=== PATIENT | female | born 1955 | race Caucasian/White ===

== ENCOUNTER 2025-03-18 15:15 | Outpatient (OUT) | payer MEDICARE, OTHER, SELFPAY ==
--- OUTSIDE RECORDS SUMMARY | 2025-03-18 15:29 | XMS_ITS | Encounter Summary ---
Author Organization [facility] Address [address] [place] [address] Care Team Providers Care Assistant Production Manager Name Role Phone Kady Cotter MD Primary Care Provider [phone] Encounter Details Date Type Department Care Team (Late st Contact Info) Description 01/21/2025 Results Follow-Up [facility] Part of [address] [place] [address] Verónica Miramontes APRN - FINESSE[address] [place], [place] [id number] Social History Tobacco Use Types Packs/Day Years Used Date Smoking Tobacco: Never Smokeless Tobacco: Never Alcohol Use Standard Drinks/Week Comments No 0 (1 standard drink = 0.6 oz pur e alcohol) Overall Financial Resource Strain (CARDIA) Answe r Date Recorded How hard is it for you to pa y for the very basics like food, housing, medical care, and heating? Not hard at all 08/09/2023 PHQ-2 Answer Date Recorded PHQ-2 Score 0 12/11/2018 Hunger Vital Sign Answer Date Recorded Within the past 12 months, y ou worried that your food would run out before you got the money to buy more. Never true 08/09/20 23 Within the past 12 months, t he food you bought just didn't last and you didn't have money to get more. Never true 08/09/2023 PRAPARE - Transportation Answer Date Re corded Lack of Transportation (Medical) Not on file 08/09/2023 In the past 12 months, has l ack of transportation kept you from meetings, work, or from getting things needed for daily living? No 08/09/2023 Housing Stability Vital Sign Answer Didier e Recorded Unable to Pay for Housing in the Last Year Not o n file 08/09/2023 Number of Places Lived in the Last Year Not on f ile 08/09/2023 In the last 12 months, was t here a time when you did not have a steady place to sleep or slept in a long term (including now)? No 08/09/2023 Food Insecurity Answer Date Recorded Within the past 12 months, y ou worried that your food would run out before you got the money to buy more. 1 08/09/2023 Within the past 12 months, t he food you bought just didn't last and you didn't have money to get more. 1 08/09/2023 Comments No Sex and Gender Information Value Date Recorded Sex Assigned at Not on file Legal Sex Female 10:06 AM EST Gender Identity Not on file Sexual Orientation Not on file documented as of this encounter Plan of Treatment Not on file documented as of this encounter Visit Diagnoses Not on filedocumented in this encounter Care Teams Assistant Production Manager Relationship Specialty Start Date End Date Kady Cotter MD [address] [place] [phone] PCP - General 08/13/12 documented as of this encounter
--- OUTSIDE RECORDS SUMMARY | 2025-03-18 15:29 | XMS_ITS | Encounter Summary ---
Author Organization [facility] Address [address] [place] [address] Care Team Providers Care Senior Label Specialist Name Role Phone Kady Cotter MD Primary Care Provider [phone] Source Comments In the event this information is protected by the Federal Confidentiality of Alcohol and Drug AbusePatient Records regulations: The Federal rules restrict any use of the information to criminally investigate or prosecute any alcohol or drug abuse patient.[facility] Encounter Details Date Type Department Care Team (Late st Contact Info) Description 02/06/2020 [place] [address] Provider, [facility] Estimate Social History Tobacco Use Types Packs/Day Years Used Date Smoking Tobacco: Never Smokeless Tobacco: Never Alcohol Use Standard Drinks/Week Comments Yes 0 (1 standard drink = 0.6 oz pur e alcohol) occasional Comments No Sex and Gender Information Value Date Recorded Sex Assigned at Not on file Legal Sex Female 10:14 AM EST Gender Identity Not on file Sexual Orientation Not on file COVID-19 Exposure Response Date Recorded In the last month, have you been in contact with someone who was confirmed or suspected to have Coronavirus / COVID-19? Unable to assess 01/30/2020 9:46 AM EDT documented as of this encounter Functional Status * Are you deaf or do you have serious difficulty hearing? Answer Date of Assessment Author No 03/08/2015 3:41 PM ROMÁNT Ritika Abdul MA * Are you blind or do you have serious difficulty seeing, even when wearing glasses? Answer Date of Assessment Author No 03/08/2015 3:41 PM EDT Ritika Abdul MA * Do you have serious difficulty walking or climbing stairs? Answer Date of Assessment Author No 03/08/2015 3:41 PM EDT Ritika Abdul MA * Do you have difficulty dressing or bathing? Answer Date of Assessment Author No 03/08/2015 3:41 PM EDT Ritika Abdul MA * Because of a physical, mental, or emotional condition, do you have difficulty doing errands alone such as visiting a doctor's office or shopping? Answer Date of Assessment Author No 03/08/2015 3:41 PM ROMÁNT Ritika Abdul MA documented as of this encounter Mental Status * Because of a physical, mental, or emotional condition, do you have serious difficulty concentrating, remembering, or making decisions? Answer Entry Date Author No 03/08/2015 3:41 PM Ritika Angel MA documented in this encounter Plan of Treatment Not on file documented as of this encounter Visit Diagnoses Not on filedocumented in this encounter Care Teams Senior Label Specialist Relationship Specialty Start Date End Date Kady Cotter MD [address] [place] [phone] PCP - General Family Medicine 10/19/11 documented as of this encounter
--- OUTSIDE RECORDS SUMMARY | 2025-03-18 15:29 | XMS_ITS | Encounter Summary ---
Author Organization [facility] Address [address] [place] [address] Care Team Providers Care Pantograph Ii Engraver Name Role Phone Kady Cotter MD Primary Care Provider [phone] Source Comments In the event this information is protected by the Federal Confidentiality of Alcohol and Drug AbusePatient Records regulations: The Federal rules restrict any use of the information to criminally investigate or prosecute any alcohol or drug abuse patient.[facility] Encounter Details Date Type Department Care Team (Late st Contact Info) Description 03/06/2025 Patient Msg Urology [address] [id number] Provider, [facility] Fpc Letter Social History Tobacco Use Types Packs/Day Years Used Date Smoking Tobacco: Never Smokeless Tobacco: Never Alcohol Use Standard Drinks/Week Comments Yes 0 (1 standard drink = 0.6 oz pur e alcohol) occasional PHQ-2 Answer Date Recorded PHQ-2 score 0 01/12/2025 Area Deprivation Index Answer Date Douglas rded National Score (1-100), lower number is lower ri sk 65 03/20/2023 State Score (1-10), lower number is lower risk 5 03/20/2023 Data from: https://www.[facility]/. Last address used for calculation [address] 03/20/2023 Comments No Sex and Gender Information Value Date Recorded Sex Assigned at Not on file Legal Sex Female 10:14 AM EST Gender Identity Not on file Sexual Orientation Not on file documented as of this encounter Functional Status * Are you deaf or do you have serious difficulty hearing? Answer Date of Assessment Author No 03/08/2015 3:41 PM Ritika Angel MA * Are you blind or do you have serious difficulty seeing, even when wearing glasses? Answer Date of Assessment Author No 03/08/2015 3:41 PM Ritika Angel MA * Do you have serious difficulty walking or climbing stairs? Answer Date of Assessment Author No 03/08/2015 3:41 PM Ritika Angel MA * Do you have difficulty dressing or bathing? Answer Date of Assessment Author No 03/08/2015 3:41 PM Ritika Angel MA * Because of a physical, mental, or emotional condition, do you have difficulty doing errands alone such as visiting a doctor's office or shopping? Answer Date of Assessment Author No 03/08/2015 3:41 PM Ritika Angel MA documented as of this encounter Mental Status * Because of a physical, mental, or emotional condition, do you have serious difficulty concentrating, remembering, or making decisions? Answer Entry Date Author No 03/08/2015 3:41 PM Ritika Angel MA documented in this encounter Plan of Treatment Not on file documented as of this encounter Visit Diagnoses Not on filedocumented in this encounter Care Teams Pantograph Ii Engraver Relationship Specialty Start Date End Date Kady Cotter MD [address] [place] [phone] PCP - General Family Medicine 10/19/11 documented as of this encounter
--- OUTSIDE RECORDS SUMMARY | 2025-03-18 15:29 | XMS_ITS | Clinical Summary ---
Author Organization [facility] Address [address] [place] [address] Care Team Providers Care Tobacco Grower Name Role Phone Kady Cotter MD Primary Care Provider [phone] Allergies Active Allergy Reactions Criticality Noted Date Comments Nsaids (Non-Steroidal Anti-Inflammatory Drug) Other: See Comments,Unknown 11/05/2013 Rosuvastatin Other: See Comments 11/07/2024 Medications metoprolol succinate XL, long acting, 25 mg ORAL 24 hr tablet Take 25 mg by mouth once daily. Active Calcium Carbonate-Vitami n D3 (OSTEO-PORETICAL ) 600mg (1,000mg) -1,000 unit ORAL Tab Take 1 tablet by mouth once daily. Active MULTI-VITAMIN ORAL Take 1 tablet by mouth once daily. Active CALCIUM CARBONATE/VITAMI N D3 (CALCIUM 600 + D,3, ORAL) Take 1 tablet by mouth once daily. Active COMPOUNDED PRESCRIPTION twice daily. Eye Promise Supplement Active colestipol (COLESTID) 1 gram tablet Take 1 g by mouth twice daily. Active amLODIPine (NORVASC) 5 mg tabletIndication s:Unspecified essential hypertension Take 1 tablet by mouth once daily. 90 tablet 3 03/09/20 14 Active insulin degludec (TRESIBA FLEXTOUCH) 100 unit/mL (3 mL) injection pen Inject subcutaneously. 09/10/19 22 Active insulin aspart U-100 (NOVOLOG) 100 unit/mL (3 mL) Inject subcutaneously q 8 HR. Active sucralfate (CARAFATE) 1 gram tablet Take 1 tablet by mouth three times a day as needed (abdominal pain). 90 tablet 07/03/20 23 Active gabapentin (NEURONTIN) 300 mg capsule Take 1 capsule by mouth daily at bedtime for 90 days. 90 capsule 01/15/20 25 025 Active Active Problems Problem Noted Date Diagnosed Date MARU (obstructive sleep apnea) 05/23/2023 Unspecified essential hypertension 11/29/2011 Adrenal mass 11/29/2011 CKD (chronic kidney disease) 11/29/2011 Cancer of kidney 11/06/2011 Encounters Date Type Department Care Team Description 03/06/2025 Patient Msg Urology [address] [address] Provider, [facility] Halfway Letter 01/14/2025 3:00 PM EDT Office Visit Neurosurgery [address] [place] [address] August Rodríguez MD Spondylolisthesis of lumbar region (Primary Dx) 01/14/2025 Travel from Last 3 Months Family History Medical History Relation Comments Colon Cancer No Family History Social History Tobacco Use Types Packs/Day Years Used Date Smoking Tobacco: Never Smokeless Tobacco: Never Tobacco Cessation:Counseling Given: Not Answered Alcohol Use Standard Drinks/Week Comments Yes 0 (1 standard drink = 0.6 oz pur e alcohol) occasional PHQ-2 Answer Date Recorded PHQ-2 score 0 01/12/2025 Area Deprivation Index Answer Date Douglas rded National Score (1-100), lower number is lower ri sk 65 03/20/2023 State Score (1-10), lower number is lower risk 5 03/20/2023 Data from: https://www.neighborhoodatlas.medicine.[facility].edu/. Last address used for calculation [address] [place] [address] [address] 03/20/2023 Comments No Sex and Gender Information Value Date Recorded Sex Assigned at Not on file Legal Sex Female 10:14 AM EST Gender Identity Not on file Sexual Orientation Not on file Last Filed Vital Signs Vital Sign Reading Time Taken Comments Blood Pressure 152/82 01/14/2025 2:59 PM EDT Pulse 65 01/14/2025 2:59 PM EDT Temperature 36.1 C (97 F) 05/31/2023 1:50 PM EDT Respiratory Rate 16 05/31/2023 3:25 PM EDT Oxygen Saturation 96% 01/14/2025 2:59 PM EDT Inhaled Oxygen Concentration - - Weight 99.6 kg (219 lb 9.3 oz) 01/14/2025 2:59 P M EDT Height 170.2 cm (5' 7 ) 01/14/2025 2:59 PM EDT Body Mass Index 34.39 01/14/2025 2:59 PM EDT Plan of Treatment Health Maintenance Due Date Last Done Comments Annual PCP Team Chronic Dise ase Visit 1974 Anxiety Screening 1974 Depression Screening 1974 Hepatitis C Screening 1974 DTaP,Tdap,Td Vaccine (1 - Tdap) 1975 CT Colonography 2001 Cologuard (FIT-DNA) 2001 Fecal Occult Blood 2001 Sigmoidoscopy 2001 Pneumococcal Vaccine: 50+ (1 of 1 - PCV) 2006 Hemoglobin/Hematocrit 06/24/2013 06/24/2012 , 01/08/2012, 12/17/2011, Additional history exists RSV Vaccine (1 - Risk 60-74 years 1-dose series) 2016 Lipid Screening 07/14/2018 07/14/2013 Medicare Annual Wellness Visit 10/11/2021 Bone Density Screening 2021 Colonoscopy 03/29/2024 03/29/2023 Colorectal Cancer Screening 03/29/2024 Covid-19 Vaccine (5 - 2023-2 5 season) 2024 08/15/2022, 11/25/2021, 05/15/2021, Additional history exists Serum Creatinine 06/19/2024 06/19/2023, , 04/10/2016, Additional history exists Advance Directive Discussion 09/10/2024 Mammogram Screening 10/12/2024 10/12/2023, 10/12/2023, 10/27/2021, Additional history exists Influenza Vaccine (#1) 2025 Diabetes Screening 06/19/2026 06/19/2023, 0 12/24/2017, 04/10/2016, Additional history exists Cervical Cancer Screening Discontinued 12/04/2018 Shingrix Vaccine Completed 01/10/2024, 11/09/2023 Procedures Procedure Name Priority Date/Time Associated Diagnosis Comments COMPREHENSIVE METABOLIC PANEL Routine 06/19/2023 9:59 AM EDT S/P laparoscopic cholecystectomy Epigastric pain COLONOSCOPY SCREENING Routine 03/29/2023 9:12 AM EDT Epigastric pain LIPID PANEL, FASTING Routine 07/14/2013 8:25 AM EST COMPLETE BLOOD COUNT Routine 06/24/2012 8:25 AM EDT Cancer of kidney from Last 3 Months or Most Recently Relevant to Health Maintenance Results * (ABNORMAL) COMP METABOLIC PANEL (06/19/2023 9:59 AM EDT) Protein, Total 7.0 6.3 - 8.0 g/dL 06/19/2023 11:09 AM [facility] Albumin 4.5 3.9 - 4.9 g/dL 06/19/2023 11:09 AM [facility] Calcium, Total 9.9 8.5 - 10.2 mg/dL 06/19/2023 11:09 AM [facility] Bilirubin, Total 0.6 0.2 - 1.3 mg/dL 06/19/2023 11:09 AM [facility] Alkaline Phosphatase 95 34 - 123 U/L 06/19/2023 11:09 AM [facility] AST 21 13 - 35 U/L 06/19/2023 11:09 AM [facility] ALT 23 7 - 38 U/L 06/19/2023 11:09 AM [facility] Glucose 142(H) 74 - 99 mg/dL 06/19/2023 11:09 AM [facility] Comment: The [place] Diabetes Association (ADA) provides guidance for cutoff values for fasting glucose and random glucose. The ADA defines fasting as no caloric intake for at least 8 hours. Fasting plasma glucose results between 100 to 125 mg/dL indicate increased risk for diabetes (prediabetes). Fasting plasma glucose results greater than or equal to 126 mg/dL meet the criteria for diagnosis of diabetes. In the absence of unequivocal hyperglycemia, results should be confirmed by repeat testing. In a patient with classic symptoms of hyperglycemia or hyperglycemic crisis, random plasma glucose results greater than or equal to 200 mg/dL meet the criteria for diagnosis of diabetes. Reference: Standards of Medical Care in Diabetes 2016, [place] Diabetes Association. Diabetes Care. 2016.39(Suppl 1). BUN 20 7 - 21 mg/dL 06/19/2023 11:09 AM [facility] Creatinine 1.05(H) 0.58 - 0.96 mg/dL 06/19/2023 11:09 AM [facility] Sodium 139 136 - 144 mmol/L 06/19/2023 11:09 AM [facility] Potassium 4.5 3.7 - 5.1 mmol/L 06/19/2023 11:09 AM [facility] Chloride 102 97 - 105 mmol/L 06/19/2023 11:09 AM [facility] CO2 27 22 - 30 mmol/L 06/19/2023 11:09 AM [facility] Anion Gap 10 9 - 18 mmol/L 06/19/2023 11:09 AM [facility] Estimated Glomerular Filtration Rate 59(L) >=60 mL/min/1. 73m 06/19/2023 11:09 AM [facility] Comment:Estimated Glomerular Filtration Rate (eGFR) is calculated using the 2020 CKD-EPI creatinine equation. This equation utilizes serum creatinine, sex, and age as parameters. The creatinine assay has traceable calibration to isotope dilution- mass spectrometry. Refer to KDIGO guidelines for clinical interpretation. In patients with unstable renal function, e.g. those with acute kidney injury, the eGFR may not accurately reflect actual GFR. Blood BLOOD SPECIMEN / Unknown Venipuncture / Unknown 06/19/2023 9:59 AM EDT 06/19/2023 9:59 AM EDT us Manjinder Lo MD LABORATORY Final Result [facility] [address] [facility] [place] [address], * COLONOSCOPY SCREENING (03/29/2023 9:12 AM EDT) Anatomical Region Laterality Modality Other 03/29/2023 9:12 AM EDT Narrative 03/29/2023 9:37 AM EDT [facility] Gastroenterology Gastrointestinal Endoscopy Patient Name: Caitlyn Palm Procedure Date: 03/29/2023 9:12 AM Date of : 1955 Admit Type: Outpatient Age: 67 Room: [place] [address] Gender: Female Note Status: Finalized Attending MD: Kt Leong MD Procedure: Colonoscopy Indications: Screening for colorectal malignant neoplasm Providers: Kt Leong MD Patient Profile: This is a 67 year old female. Refer to note in patient chart for documentation of history and physical. Last Colonoscopy: 10 years ago. Referring Physician: Manjinder Lo MD (Referring MD) Medicines: Monitored Anesthesia Care Complications: No immediate complications. Requesting Provider: Procedure: Pre-Anesthesia Assessment: - Prior to the procedure, a History and Physical was performed, and patient medications and allergies were reviewed. The patient is competent. The risks and benefits of the procedure and the sedation options and risks were discussed with the patient. All questions were answered and informed consent was obtained. Patient identification and proposed procedure were verified by the physician and the nurse in the pre-procedure area in the procedure room. Mental Status Examination: alert and oriented. Airway Examination: normal oropharyngeal airway and neck mobility. Respiratory Examination: clear to auscultation. CV Examination: normal. Prophylactic Antibiotics: The patient does not require prophylactic antibiotics. Prior Anticoagulants: The patient has taken no anticoagulant or antiplatelet agents. ASA Grade Assessment: II - A patient with mild systemic disease. After reviewing the risks and benefits, the patient was deemed in satisfactory condition to undergo the procedure. The anesthesia plan was to use monitored anesthesia care (MAC). Immediately prior to administration of medications, the patient was re-assessed for adequacy to receive sedatives. The heart rate, respiratory rate, oxygen saturations, blood pressure, adequacy of pulmonary ventilation, and response to care were monitored throughout the procedure. The physical status of the patient was re-assessed after the procedure. After I obtained informed consent, the scope was passed under direct vision. Throughout the procedure, the patient's blood pressure, pulse, and oxygen saturations were monitored continuously. The Colonoscope was introduced through the anus and advanced to the cecum, identified by appendiceal orifice and ileocecal valve. I was present and participated during the entire procedure, including non-clayton portions, and during the administration and monitoring of Moderate Sedation. The colonoscopy was performed without difficulty. The patient tolerated the procedure well. The quality of the bowel preparation was adequate. The ileocecal valve, appendiceal orifice, and rectum were photographed. Scope Withdrawal Time: 0 hours 6 minutes 59 seconds Moderate Sedation: MAC anesthesia was administered by the anesthesia team. Findings: The perianal and digital rectal examinations were normal. A 5 mm polyp was found in the cecum. The polyp was sessile. The polyp was removed with a cold snare. Resection and retrieval were complete. Verification of patient identification for the specimen was done by the nurse and fisheries technician using the patient's name, date and medical record number. The pathology specimen was placed into Bottle Number 2. Estimated blood loss was minimal. A 5 mm polyp was found in the transverse colon. The polyp was sessile. The polyp was removed with a cold snare. Resection and retrieval were complete. The pathology specimen was placed into Bottle Number 1. Estimated blood loss was minimal. A few small-mouthed diverticula were found in the sigmoid colon and ascending colon. Non-bleeding external hemorrhoids were found during retroflexion. The hemorrhoids were small. The exam was otherwise without abnormality on direct and retroflexion views. Impression: - One 5 mm polyp in the cecum, removed with a cold snare. Resected and retrieved. - One 5 mm polyp in the transverse colon, removed with a cold snare. Resected and retrieved. - Diverticulosis in the sigmoid colon and in the ascending colon. - Non-bleeding external hemorrhoids. - The examination was otherwise normal on direct and retroflexion views. Recommendation: - Patient has a contact number available for emergencies. The signs and symptoms of potential delayed complications were discussed with the patient. Return to normal activities tomorrow. Written discharge instructions were provided to the patient. - High fiber diet. - Continue present medications. - Await pathology results. - Repeat colonoscopy in 5 years for surveillance. Procedure Code(s): --- Professional --- 97234, Colonoscopy, flexible; with removal of tumor(s), polyp(s), or other lesion(s) by snare technique Diagnosis Code(s): --- Professional --- Z12.11, Encounter for screening for malignant neoplasm of colon D12.0, Benign neoplasm of cecum D12.3, Benign neoplasm of transverse colon (hepatic flexure or splenic flexure) K64.4, Residual hemorrhoidal skin tags K57.30, Diverticulosis of large intestine without perforation or abscess without bleeding CPT copyright 2020 [place] [employer]. All rights reserved. The codes documented in this report are preliminary and upon health care liaison review may be revised to meet current compliance requirements. Scope In: 9:15:02 AM Scope Out: 9:32:13 AM MD Kt Irving MD 03/29/2023 9:35:11 AM This report has been signed electronically by Kt Leong MD Number of Addenda: 0 Note Initiated On: 03/29/2023 9:12 AM Estimated Blood Loss: Estimated blood loss was minimal. Manjinder Lo MD DIGESTIVE DISEASE Final Result * (ABNORMAL) LIPID PANEL BASIC (07/14/2013 8:25 AM EST) Triglyceride 160(H) 30 - 149 mg/dL [facility] Cholesterol, Total 170 100 - 199 mg/dL [facility] HDL Cholesterol 40(L) >55 mg/dL [facility] VLDL Cholesterol 32 6 - 40 mg/dL [facility] LDL Cholesterol, Calculated 98 60 - 129 mg/dL [facility] Fasting Time 12 hrs [facility] TC:HDL Ratio 4.25 1.00 - 5.00 [facility] LDL:HDL Ratio 2.45 0.50 - 3.55 [facility] Non HDL Cholesterol 130 90 - 159 mg/dL [facility] 07/14/2013 8:25 AM EST 07/14/2013 9:25 AM EST Cc Provider LABORATORY Final Result [facility] [address] [place] [address] * CBC + PLT (06/24/2012 8:25 AM EDT) WBC 5.74 3.70 - 11.00 k/uL [facility] RBC 4.59 3.90 - 5.20 m/uL [facility] Hemoglobin 12.5 11.5 - 15.5 g/dL [facility] Hematocrit 37.9 36.0 - 46.0 % [facility] MCV 82.6 80.0 - 100.0 fL [facility] MCH 27.2 26.0 - 34.0 pG [facility] MCHC 33.0 30.5 - 36.0 g/dL [facility] RDW-CV 13.1 11.5 - 15.0 % [facility] Platelet Count 243 150 - 400 k/uL [facility] MPV 9.3 9.0 - 12.7 fL [facility] Blood specimen (specimen) BLOOD SPECIMEN / Unknown 06/24/2012 8:25 AM EDT 06/24/2012 8:27 AM EDT us Thony Renee MD LABORATORY Final Resul t [facility] [address] [place] [address] from Last 3 Months or Most Recently Relevant to Health Maintenance Insurance MEDICARE [id number] [place] [address] [place] [address] Advance Directives Documents on File Type Date Recorded Patient Technical Training Specialist Expl anation Advance Directive(s) 12/13/2011 9:15 PM Care Teams Tobacco Grower Relationship Specialty Start Date End Date Kady Cotter MD [address] [place] [phone] PCP - General Family Medicine 10/19/11
--- OUTSIDE RECORDS SUMMARY | 2025-03-18 15:29 | XMS_ITS | Encounter Summary ---
Author Organization [facility] Address [address] [place] [address] Care Team Providers Care Ribbon Weaver Name Role Phone Kady Cotter MD Primary Care Provider [phone] Source Comments In the event this information is protected by the Federal Confidentiality of Alcohol and Drug AbusePatient Records regulations: The Federal rules restrict any use of the information to criminally investigate or prosecute any alcohol or drug abuse patient.[facility] Encounter Details Date Type Department Care Team (Late st Contact Info) Description 2021 [place] [address] Provider, [facility] Medicare Coverage of Physical Exams Social History Tobacco Use Types Packs/Day Years Used Date Smoking Tobacco: Never Smokeless Tobacco: Never Alcohol Use Standard Drinks/Week Comments Yes 0 (1 standard drink = 0.6 oz pur e alcohol) occasional Area Deprivation Index Answer Date Douglas rded National Score (1-100), lower number is lower ri sk Not on file 08/18/2020 State Score (1-10), lower number is lower risk N ot on file 08/18/2020 Data from: https://www.neighborhoodatlas.medicine.[facility].edu/. Last address used for calculation Not on file 08/18/2020 Comments No Sex and Gender Information Value Date Recorded Sex Assigned at Not on file Legal Sex Female 10:14 AM EST Gender Identity Not on file Sexual Orientation Not on file COVID-19 Exposure Response Date Recorded In the last month, have you been in contact with someone who was confirmed or suspected to have Coronavirus / COVID-19? No / Unsure 10/21/2021 10:06 AM EST documented as of this encounter Functional Status [...] on filedocumented in this encounter Care Teams Ribbon Weaver Relationship Specialty Start Date End Date Kady Cotter MD [address] [place] [id number] PCP - General Family Medicine 10/19/11 documented as of this encounter
--- OUTSIDE RECORDS SUMMARY | 2025-03-18 15:29 | XMS_ITS | Encounter Summary ---
Author Organization [facility] Address [address] [place] [address] Care Team Providers Care Mushroom Farmer Name Role Phone Kady Cotter MD Primary Care Provider [phone] Source Comments In the event this information is protected by the Federal Confidentiality of Alcohol and Drug AbusePatient Records regulations: The Federal rules restrict any use of the information to criminally investigate or prosecute any alcohol or drug abuse patient.[facility] Encounter Details Date Type Department Care Team (Late st Contact Info) Description 02/15/2023 Get Medical Advice Urology [address] [address] Thony Renee MD [address] [place] [address] future surgery Social History Tobacco Use Types Packs/Day Years Used Date Smoking Tobacco: Never Smokeless Tobacco: Never Alcohol Use Standard Drinks/Week Comments Yes 0 (1 standard drink = 0.6 oz pur e alcohol) occasional Area Deprivation Index Answer Date Douglas rded National Score (1-100), lower number is lower ri sk 53 10/23/2022 State Score (1-10), lower number is lower risk N ot on file 10/23/2022 Data from: https://www.neighborhoodatlas.[facility]/. Last address used for calculation [address] 10/23/2022 Comments No Sex and Gender Information Value [...] on filedocumented in this encounter Care Teams Mushroom Farmer Relationship Specialty Start Date End Date Kady Cotter MD [address] [place] [phone] PCP - General Family Medicine 10/19/11 documented as of this encounter
--- OUTSIDE RECORDS SUMMARY | 2025-03-18 15:29 | XMS_ITS | Encounter Summary ---
Author Organization [facility] Address [address] [place] [address] Care Team Providers Care Bike Shop Manager Name Role Phone Kady Cotter MD Primary Care Provider [phone] Source Comments In the event this information is protected by the Federal Confidentiality of Alcohol and Drug AbusePatient Records regulations: The Federal rules restrict any use of the information to criminally investigate or prosecute any alcohol or drug abuse patient.[facility] Encounter Details Date Type Department Care Team (Late st Contact Info) Description 09/29/2023 Get Medical Advice Urology [address] [address] Thony Renee MD [address] [place] [address] Request to consult Social History Tobacco Use Types Packs/Day Years Used Date Smoking Tobacco: Never Smokeless Tobacco: Never Alcohol Use Standard Drinks/Week Comments Yes 0 (1 standard drink = 0.6 oz pur e alcohol) occasional Area Deprivation Index Answer Date Douglas rded National Score (1-100), lower number is lower ri sk 65 03/20/2023 State Score (1-10), lower number is lower risk 5 03/20/2023 Data from: https://www.neighborhoodatlas.[facility]/. Last address used for calculation [address] 03/20/2023 Comments No Sex and [...] on filedocumented in this encounter Care Teams Bike Shop Manager Relationship Specialty Start Date End Date Kady Cotter MD [address] [place] [phone] PCP - General Family Medicine 10/19/11 documented as of this encounter
--- OUTSIDE RECORDS SUMMARY | 2025-03-18 15:29 | XMS_ITS | Encounter Summary ---
Author Organization [facility] Address [address] [place] [address] Care Team Providers Care Glass Deposition Tender Name Role Phone Kady Cotter MD Primary Care Provider [phone] Source Comments In the event this information is protected by the Federal Confidentiality of Alcohol and Drug AbusePatient Records regulations: The Federal rules restrict any use of the information to criminally investigate or prosecute any alcohol or drug abuse patient.[facility] Encounter Details Date Type Department Care Team (Late st Contact Info) Description 03/28/2023 GI Preprocedure Call Ambulatory Surgery [address] [place] [phone] [place] [address] [address] [place] [phone] Social History Tobacco Use Types Packs/Day Years Used Date Smoking Tobacco: Never Smokeless Tobacco: Never Alcohol Use Standard Drinks/Week Comments Yes 0 (1 standard drink = 0.6 oz pur e alcohol) occasional Area Deprivation Index Answer Date Douglas rded National Score (1-100), lower number is lower ri 65 03/20/2023 State Score (1-10), lower number is lower risk 5 03/20/2023 Data from: https://www.neighborhoodatlas.[facility]/. Last address used for calculation [address] 03/20/2023 Comments No Sex and [...] Date Author No 03/08/2015 3:41 PM Ritika Dominguez MA documented in this encounter Plan of Treatment Not on file documented as of this encounter Visit Diagnoses Not on filedocumented in this encounter Care Teams Glass Deposition Tender Relationship Specialty Start Date End Date Kady Cotter MD [facility] [place] [phone] PCP - General Family Medicine 10/19/11 documented as of this encounter
--- OUTSIDE RECORDS SUMMARY | 2025-03-18 15:29 | XMS_ITS | Encounter Summary ---
Author Organization [facility] Address [address] [place] [address] Care Team Providers Care Track Laminating Machine Tender Name Role Phone Kady Cotter MD Primary Care Provider Source Comments In the event this information is protected by the Federal Confidentiality of Alcohol and Drug AbusePatient Records regulations: The Federal rules restrict any use of the information to criminally investigate or prosecute any alcohol or drug abuse patient.[facility] Encounter Details Date Type Department Care Team (Late st Contact Info) Description 09/22/2021 Patient Msg Urology [address] [phone] Provider, Ccf Orders Social History Tobacco Use Types Packs/Day Years [...] N ot on file 08/18/2020 Data from: https://www.neighborhoodatlas.medicine.[facility].edu/. Last address used for calculation Not [...] on filedocumented in this encounter Care Teams Track Laminating Machine Tender Relationship Specialty Start Date End Date Kady Cotter MD [address] [place] [address] PCP - General Family Medicine 10/19/11 documented as of this encounter
--- OUTSIDE RECORDS SUMMARY | 2025-03-18 15:29 | XMS_ITS | Encounter Summary ---
Author Organization [facility] Address [address] [place] [address] Care Team Providers Care Risk Management Professional Name Role Phone Kady Cotter MD Primary Care Provider Source Comments In the event this information is protected by the Federal Confidentiality of Alcohol and Drug AbusePatient Records regulations: The Federal rules restrict any use of the information to criminally investigate or prosecute any alcohol or drug abuse patient.[facility] Encounter Details Date Type Department Care Team (Latest Contact Info) Description 12/16/2024 Get Medical Advice Urology [address] [phone] [place] [address] [place] [address] Recommendation for spinal surgeon Social History Tobacco Use Types Packs/Day Years Used Date Smoking Tobacco: Never Smokeless Tobacco: Never Alcohol Use Standard Drinks/Week Comments Yes 0 (1 standard drink = 0.6 oz pur e alcohol) occasional Area Deprivation Index Answer Date Douglas rded National Score (1-100), lower number is lower ri sk 65 03/20/2023 State Score (1-10), lower number is lower risk 5 03/20/2023 Data from: https://www.neighborhoodatlas.[facility]/. Last address used for calculation [address] [address] 03/20/2023 Comments No Sex [...] on filedocumented in this encounter Care Teams Risk Management Professional Relationship Specialty Start Date End Date Kady Cotter MD [address] [place] [phone] PCP - General Family Medicine 10/19/11 documented as of this encounter
--- OUTSIDE RECORDS SUMMARY | 2025-03-18 15:29 | XMS_ITS | Encounter Summary ---
Author Organization [facility] Address [address] [place] [address] Care Team Providers Care Building Architect Name Role Phone Kady Cotter MD Primary Care Provider [phone] Source Comments In the event this information is protected by the Federal Confidentiality of Alcohol and Drug AbusePatient Records regulations: The Federal rules restrict any use of the information to criminally investigate or prosecute any alcohol or drug abuse patient.[facility] Encounter Details Date Type Department Care Team (Late st Contact Info) Description 05/22/2023 Patient Msg Pre Anesthesia [address] [place] [address] Provider, Ccf PACC appt check in Social History Tobacco Use Types Packs/Day Years Used Date Smoking Tobacco: Never Smokeless Tobacco: Never Alcohol Use Standard Drinks/Week Comments Yes 0 (1 standard drink = 0.6 oz pur e alcohol) occasional Area Deprivation Index Answer Date Douglas rded National Score (1-100), lower number is lower ri sk 65 03/20/2023 State Score (1-10), lower number is lower risk 5 03/20/2023 Data from: https://www.neighborhoodatlas.medicine.[facility].edu/. Last address used for calculation [address] 03/20/2023 Comments No Sex and Gender [...] on filedocumented in this encounter Care Teams Building Architect Relationship Specialty Start Date End Date Kady Cotter MD [address] [place] [address] PCP - General Family Medicine 10/19/11 documented as of this encounter
--- OUTSIDE RECORDS SUMMARY | 2025-03-18 15:29 | XMS_ITS | Encounter Summary ---
Author Organization [facility] Address [address] [place] [address] Care Team Providers Care Senior Pricing Analyst Name Role Phone Kady Cotter MD Primary Care Provider [phone] Source Comments In the event this information is protected by the Federal Confidentiality of Alcohol and Drug AbusePatient Records regulations: The Federal rules restrict any use of the information to criminally investigate or prosecute any alcohol or drug abuse patient.[facility] Encounter Details Date Type Department Care Team (Late st Contact Info) Description 12/01/2014 Patient Msg Medical Records [address] [place] [address] Provider, Ccf Labs Social History Tobacco Use Types Packs/Day Years [...] hearing? Answer Date of Assessment Author No 01/12/2014 1:19 PM EDT Mikel Ratliff * Are you blind or do you have serious difficulty seeing, even when wearing glasses? Answer Date of Assessment Author No 01/12/2014 1:19 PM EDT Mikel Ratliff * Do you have serious difficulty walking or climbing stairs? Answer Date of Assessment Author No 01/12/2014 1:19 PM EDT Mikel Ratliff * Do you have difficulty dressing or bathing? Answer Date of Assessment Author No 01/12/2014 1:19 PM EDT Mikel Ratliff * Because of a physical, mental, or emotional condition, do you have difficulty doing errands alone such as visiting a doctor's office or shopping? Answer Date of Assessment Author No 01/12/2014 1:19 PM EDT Mikel Ratliff documented as of this encounter Mental Status * Because of a physical, mental, or emotional condition, do you have serious difficulty concentrating, remembering, or making decisions? Answer Entry Date Author No 01/12/2014 1:19 PM EDT Mikel Ratliff documented in this encounter Plan of Treatment Not on file documented as of this encounter Visit Diagnoses Not on filedocumented in this encounter Care Teams Senior Pricing Analyst Relationship Specialty [place] [address] [place] [phone] PCP - General Family Medicine 10/19/11 documented as of this encounter
--- OUTSIDE RECORDS SUMMARY | 2025-03-18 15:29 | XMS_ITS | Encounter Summary ---
Author Organization [facility] Address [address] [place] [address] Care Team Providers Care Clinical Team Lead Name Role Phone Kady Cotter MD Primary Care Provider [phone] Source Comments In the event this information is protected by the Federal Confidentiality of Alcohol and Drug AbusePatient Records regulations: The Federal rules restrict any use of the information to criminally investigate or prosecute any alcohol or drug abuse patient.[facility] Encounter Details Date Type Department Care Team (Late st Contact Info) Description 03/22/2023 Patient [facility] Gastroenterology [address] [phone] Provider, Ccf Colonoscopy instructions Social History Tobacco Use Types Packs/Day Years Used Date Smoking Tobacco: Never Smokeless Tobacco: Never Alcohol Use Standard Drinks/Week Comments Yes 0 (1 standard drink = 0.6 oz pur e alcohol) occasional Area Deprivation Index Answer Date Douglas rded National Score (1-100), lower number is lower ri sk 65 03/20/2023 State Score (1-10), lower number is lower risk 5 03/20/2023 Data from: https://www.neighborhoodatlas.medicine.[facility].edu/. Last address used for calculation [address] [place] [address] 03/20/2023 Comments No Sex and Gender Information [...] on filedocumented in this encounter Care Teams Clinical Team Lead Relationship Specialty Start Date End Date Kady Cotter MD [address] [place] [address] PCP - General Family Medicine 10/19/11 documented as of this encounter
--- OUTSIDE RECORDS SUMMARY | 2025-03-18 15:29 | XMS_ITS | Encounter Summary ---
Author Organization [facility] Address [address] [place] [address] Care Team Providers Care Dough Sheeter Name Role Phone Kady Cotter MD Primary Care Provider [phone] Source Comments In the event this information is protected by the Federal Confidentiality of Alcohol and Drug AbusePatient Records regulations: The Federal rules restrict any use of the information to criminally investigate or prosecute any alcohol or drug abuse patient.[facility] Encounter Details Date Type Department Care Team (Late st Contact Info) Description 02/05/2020 Patient [place] [address] Provider, Ccf Estimate Social History Tobacco Use [...] 3:41 PM EDT Ritika Abdul MA * Are you blind [...] on filedocumented in this encounter Care Teams Dough Sheeter Relationship Specialty Start Date End Date Kady Cotter MD [address] [place] [phone] PCP - General Family Medicine 10/19/11 documented as of this encounter
--- OUTSIDE RECORDS SUMMARY | 2025-03-18 15:29 | XMS_ITS | Clinical Summary ---
Author Organization Raulito [facility] Address [address] [place] [address] Care Team Providers Care Sales And Management Trainee Name Role Phone Kady Cotter MD Primary Care Provider [phone] Allergies No known active allergies Medications colestipol (COLESTID) 1 G tablet Take 1 tablet by mouth 2 times daily Active amLODIPine (NORVASC) 5 MG tablet Take 1 tablet by mouth daily Active metoprolol (TOPROL XL) 25 MG XL tablet Take 1 tablet by mouth daily Active Calcium Carb-Cholecalci ferol (LIQUID CALCIUM WITH D3) 600-1000 MG-UNIT CAPS Take by mouth. Active Multiple Vitamins-Minera ls (MULTIVITAMIN & MINERAL PO) Take by mouth. Active calcium-vitamin D (OSCAL-500) 500-200 MG-UNIT per tablet Take 1 tablet by mouth daily Active glimepiride (AMARYL) 1 MG tablet 06/11/2017 Active LANTUS SOLOSTAR 100 UNIT/ML injection pen INJECT 12 UNITS sub-q EVERY EVENING 3 05/17/2017 Active VICTOZA 18 MG/3ML SOPN SC injection inject sub-q 1.2mg EVERY morning 11 05/17/2017 Active OZEMPIC 0.25 or 0.5 MG/DOSE SOPN take 0 .5mg under the skin weekly 5 09/09/2018 Active nystatin (MYCOSTATIN) 805595 UNIT/GM powderIndicatio ns:Intertrigo Apply 3 times daily as needed for skin rash 1 each 3 10/27/2021 Active insulin aspart (NOVOLOG FLEXPEN) 100 UNIT/ML injection pen 2020 Activ e Insulin Degludec 100 UNIT/ML SOPN Inject into the skin 09/10/2021 Active pantoprazole (PROTONIX) 40 MG tablet Take 1 tablet by mouth daily 05/24/2023 Active sucralfate (CARAFATE) 1 GM tablet Take 1 tablet by mouth 3 times daily as needed 07/03/2023 Active Active Problems Problem Noted Date Diagnosed Date Adrenal mass 11/29/2011 CKD (chronic kidney disease) 11/29/2011 Essential hypertension 11/29/2011 Cancer of kidney 11/06/2011 Encounters Date Type Department Care Team Description 01/21/2025 Results Follow-Up [facility]OLOGY [facility] of [facility] [address] [place] [address] Verónica Miramontes APRN - CNM 01/16/2025 3:00 PM EDT - 01/18/2025 11:59 PM EDT Hospital Encounter [facility] Mammography [address] [place] [address] Screening breast examination Discharge Disposition: Home or Self Care from Last 3 Months Family History Medical History Relation Name Comments Diabetes Mother Mom Heart Disease Mother Mom High Blood Pressure Mother Mom Kidney Cancer Mother Mom Relation Name Status Comments Mother Mom Social History Tobacco Use Types Packs/Day Years Used Date Smoking Tobacco: Never Smokeless Tobacco: Never Tobacco Cessation:Counseling Given: Not Answered Alcohol Use Standard Drinks/Week Comments No 0 [...] place to sleep or slept in a nursing home (including now)? No 08/09/2023 Food Insecurity Answer [...] Sign Reading Time Taken Comments Blood Pressure 118/70 08/09/2023 9:50 AM EST Pulse - - Temperature - - Respiratory Rate - - Oxygen Saturation - - Inhaled Oxygen Concentration - - Weight 97.5 kg (215 lb) 01/16/2025 3:05 PM EDT Height 170.2 cm (5' 7 ) 01/16/2025 3:05 PM EDT Body Mass Index 33.67 01/16/2025 3:05 PM EDT Plan of Treatment Health Maintenance Due Date Last Done Comments Depression Screen 1968 GFR test (Diabetes, CKD 3-4, OR last GFR 15-59) 1974 Hepatitis C screen 1974 DTaP/Tdap/Td vaccine (1 - Tdap) 1975 Diabetes screen 1991 Lipids 1996 Colonoscopy 2001 Colorectal Cancer Screen 2001 FIT/FOBT: Average risk 2001 Fecal-DNA (Cologuard): Average risk 2001 Sigmoidoscopy/CT colonography 2001 Pneumococcal 50+ years Vaccine (1 of 1 - PCV) 2006 DEXA (modify frequency per FRAX score) 2011 Annual Wellness Visit (Medicare) 08/06/2023 COVID-19 Vaccine ( season) 2024 08/15/2022, 11/25/2021, 05/15/2021, Additional history exists Flu vaccine (#1) 04/10/2025 Breast cancer screen 01/16/2027 01/16/2025, 10/12/2023, 10/27/2021, Additional history exists Respiratory Syncytial Virus (RSV) or age 60 yrs+ (1 - 1-dose 75+ series) 2031 Cervical cancer screen Discontinued Pap smear Discontinued 10/27/2021, 11/09, 12/04/2018, Additional history exists Shingles vaccine Completed 01/10/2024, 11/09/2023 HPV (without or with Pap) Discontinued Hepatitis A vaccine Aged Out No longe r eligible based on patient's age to complete this topic Hepatitis B vaccine Aged Out No longe r eligible based on patient's age to complete this topic Hib vaccine Aged Out No longer eligi ble based on patient's age to complete this topic Meningococcal (ACWY) vaccine Aged Out No longer eligible based on patient's age to complete this topic Meningococcal B vaccine Aged Out No l onger eligible based on patient's age to complete this topic Polio vaccine Aged Out No longer elig ible based on patient's age to complete this topic Procedures Procedure Name Priority Date/Time Associated Diagnosis Comments KRIS ABIGAIL DIGITAL SCREEN SELF REFERRAL W OR WO CAD BILATERAL Routine 01/16/2025 3:14 PM EDT Screening breast examination BOARDING KENNEL OR CATTERY OPERATOR CYTOLOGY Routine 10/27/2021 10:51 AM EST from Last 3 Months or Most Recently Relevant to Health Maintenance Results * KRIS ABIGAIL DIGITAL SCREEN SELF REFERRAL W OR WO CAD BILATERAL (01/16/2025 3:14 PM EDT) Anatomical Region Laterality Modality Breast Bilateral Mammography 01/16/2025 4:39 PM EDT Impressions 01/16/2025 4:40 PM EDT No evidence of malignancy seen in either breast. Advise annual screening mammography. Breast tissue can be either dense or not dense. Dense tissue makes it harder to find breast cancer on a mammogram and also raises the risk of developing breast cancer. Your breast tissue is NOT DENSE. Talk to your health care provider about breast density, risk for breast cancer and your individual situation. BI-RADS 1 BIRADS: BIRADS - CATEGORY 1 Negative, no evidence of malignancy. Normal interval follow-up is recommended in 12 months. OVERALL ASSESSMENT - NEGATIVE A letter of notification will be sent to the patient regarding the results. [employer] recommends annual mammograms for women 40 years and older. Performing Facility: [place] [id number] Narrative 01/16/2025 4:40 PM EDT EXAMINATION: SCREENING DIGITAL BILATERAL MAMMOGRAM WITH TOMOSYNTHESIS, 01/16/2025 TECHNIQUE: Screening mammography of the bilateral breasts was performed with tomosynthesis. 2D standard and 3D tomosynthesis combination imaging performed through both breasts in the MLO and CC projection. Computer aided detection was utilized in the interpretation of this exam. COMPARISON: 12 October 2023; 27 October 2021 HISTORY: Screening. No family history of breast cancer. 2-3 year history of oral contraception. No HRT therapy or breast interventions. TC score 5.62 FINDINGS: BREAST COMPOSITION: There are scattered areas of fibroglandular density. Bilateral breasts are composed of scattered fibroglandular density. No skin thickening, nipple contour changes, suspicious calcifications, suspicious masses, areas of architectural distortion or significant interval changes are noted. Mario Lutz MD [facility] MAMMOGRAPHY ORDERABLES Fi nal Result * BOARDING KENNEL OR CATTERY OPERATOR Cytology (10/27/2021 10:51 AM EST) Cytology Report INTERPRETATION Cervical material, (ThinPrep vial, Imaging-assisted review): Specimen Adequacy: Satisfactory for evaluation. Descriptive Diagnosis: Negative for intraepithelial lesion or malignancy. Key Ringer: GREGORY REEVES(ASCP) Electronically Signed Out 11/07/2021 Source: A: Cervical material, (ThinPrep vial, Imaging-assisted review) Clinical History Postmenopausal Z01.419 Routine computer trainer exam without abnormal findings High risk HPV DNA testing is requested if the diagnosis is abnormal GYNECOLOGIC CYTOLOGY REPORT Patient Name: CAITLYN PALM [facility] Rec: [id number] Path Number: [id number] [facility] ANATOMIC PATHOLOGY [address] [place] [phone] [facility] CERVICAL MATERIAL 10/27/2021 10:51 AM EST 10/28/2021 10:51 AM EST us Mario Lutz MD PATHOLOGY/CYTOLOGY ORDERABLES Final Result [facility] [address] [place] [address], [facility] [phone] [address] [phone] from Last 3 Months or Most Recently Relevant to Health Maintenance Insurance [address] [place] [address] MEDICARE Member Subscriber Plan / Payer (Ef fective 2021-Present) Name:Kamini Palmpamela Dodge Relation to Subscriber:Self Name:Caitlyn Palm Dar Payer ID:Not on file Group ID:Not on file Type:Not on file Address: [address] [place] [address] Care Teams Sales And Management Trainee Relationship Specialty Start Date End Date Kady Cotter MD [address] [place] [address] PCP - General 08/13/12
--- OUTSIDE RECORDS SUMMARY | 2025-03-18 15:29 | XMS_ITS | Encounter Summary ---
Author Organization [facility] Address [address] [place] [address] Care Team Providers Care Medication Nurse Name Role Phone Kady Cotter MD Primary Care Provider [phone] Source Comments In the event this information is protected by the Federal Confidentiality of Alcohol and Drug AbusePatient Records regulations: The Federal rules restrict any use of the information to criminally investigate or prosecute any alcohol or drug abuse patient.[facility] Encounter Details Date Type Department Care Team (Late st Contact Info) Description 01/16/2017 Patient Msg Medical Records [address] [place], [place] [phone] Sabine Cummings, ANA ROSA Questionnaire Submission Social History Tobacco Use Types Packs/Day Years [...] of Assessment Author No 03/08/2015 3:41 PM EDRitika Sarabia MA * Are you blind or do [...] on filedocumented in this encounter Care Teams Medication Nurse Relationship Specialty Start Date End Date Kady Cotter MD [address] [place] [phone] PCP - General Family Medicine 10/19/11 documented as of this encounter
--- NOTE | 2025-03-18 15:47 | ECG_ITS ---
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
[2025-03-18 15:50] LABS: Hematocrit 39.0 % (36.0-48.0); Hemoglobin 13.1 g/dL (12.0-16.0); Immature Granulocytes Abs Auto 0.02 10^3/uL (0.00-0.03); Immature Granulocytes Pct Auto 0.3 % (0.0-0.5); Lymphocytes Absolute Auto 2.3 10^3/uL (1.2-3.8); Mean Corpuscular HGB Conc 33.6 g/dL (29.9-35.2); Mean Corpuscular Hemoglobin 29.3 pg (26.7-34.0); Mean Corpuscular Volume 87.2 fL (81.0-99.0); Platelet Count 260 10^3/uL (150-450); Red Blood Count 4.47 10^6/uL (4.20-5.40); White Blood Count 7.0 10^3/uL (4.0-11.0)
[2025-03-18 16:10] LABS: Microalbum Creatinine Ratio Ur 114.1 mg/g (0.0-29.9)
[2025-03-18 17:14] LABS: Alanine Aminotransferase 45 U/L (14-59); Albumin Globulin Ratio 1.2; Albumin Level 3.8 g/dL (3.4-5.0); Alkaline Phosphatase 90 U/L (46-116); Anion Gap 14.6; Aspartate Amino Transferase 19 U/L (15-37); Blood Urea Nitrogen 22.0 mg/dL (7.0-18.0); Calcium 9.6 mg/dL (8.5-10.1); Carbon Dioxide 27.4 mmol/L (21.0-32.0); Chloride 106 mmol/L (98-107); Estimated GFR (African America 50 (>=60 mL/min/1.73m^2); Estimated GFR (Non-African Ame 41 (>=60 mL/min/1.73m^2); Globulin 3.2 g/dL; Glucose 139 mg/dL (74-106); Lipase 72.0 U/L (16.0-77.0); NT Pro B Type Natriuretic Pept 135.0 pg/mL (<=900.0); Potassium 4.0 mmol/L (3.5-5.1); Sodium 144 mmol/L (136-145); TSH W/ REFLEX FT4 1.052 uIU/mL (0.358-3.740); Total Protein 7.0 g/dL (6.4-8.2)
== END 2025-03-18 15:16 | disposition home or self-care (01) ==
LOC: LAB 15:27
PROVIDERS: PCP Family Medicine; Visit Provider Family Medicine
DX: R10.11 Right upper quadrant pain (principal); R60.0 Localized edema; Z90.5 Acquired absence of kidney; I50.9 Heart failure, unspecified
CPT/HCPCS: 36415; 80053; 82043; 82570; 83690; 83880; 84443; 85025; 93005

== ENCOUNTER 2025-06-24 09:07 | Outpatient (OUT) | payer MEDICARE, OTHER, SELFPAY ==
--- OUTSIDE RECORDS SUMMARY | 2025-06-19 06:17 | XMS_ITS | Continuity of Care Document ---
Author Organization [facility] Address [address] [place] [address] Phone Care Team Providers Care Blue Line Trimmer Name Role Phone Kady Cotter MD Primary Care Provider Nestor Sandoval MD Attending Provider Debi Tolbert Attending Provider [phone] Care Teams Patient Care Team Team Status: Active Member Role Status Dates Kady Cotter MD Primary Care Provider Active Visit Care Team Team Status: Active Member Role Status Dates Kady Cotter MD Primary Care Provider Active Start: March 26, 2025 Nestor Sandoval MD Attending Provider Active Sta rt: March 26, 2025 Visit Care Team Team Status: Inactive Member Role Status Dates Kady Cotter MD Primary Care Provider Active Start: March 26, 2025 End: March 26, 2025 Nestor Sandoval MD Attending Provider Active Sta rt: March 26, 2025 End: March 26, 2025 Visit Care Team Team Status: Inactive Member Role Status Dates Kady Cotter MD Primary Care Provider Active Start: May 13, 2025 End: May 13, 2025 Nestor Sandoval MD Attending Provider Active Sta rt: May 13, 2025 End: May 13, 2025 Visit Care Team Team Status: Inactive Member Role Status Dates Kady Cotter MD Primary Care Provider Active Start: May 29, 2025 End: May 29, 2025 Nestor Sandoval MD Attending Provider Active Sta rt: May 29, 2025 End: May 29, 2025 Visit Care Team Team Status: Inactive Member Role Status Dates Kady Cotter MD Primary Care Provider Active Start: June 04, 2025 End: June 04, 2025 Vamshi Tolbert MD Attending Provider Active Start : June 04, 2025 End: June 04, 2025 Visit Care Team Team Status: Inactive Member Role Status Dates Kady Cotter MD Primary Care Provider Active Start: June 11, 2025 End: June 11, 2025 Nestor Sandoval MD Attending Provider Active Sta rt: June 11, 2025 End: June 11, 2025 Patient Care Team Team Status: Inactive Member Role Status Dates Kady Cotter MD Primary Care Provider Active Start: June 19, 2025 End: June 19, 2025 Nestor Sandoval MD Attending Provider Active Sta rt: June 19, 2025 End: June 19, 2025 Chief Complaint and Reason for Visit Chief Complaint Admit Date DARLINE LUMBAR FACET RFA L3,4,5 March 26, 2 025 10:36am 6 week FOLLOW UP AFTER DARLINE LUMBAR RFA Se [id number] 1:09pm m47.817 May 29, 2025 8:11am CKD 3 June 04, 2025 9:52am bilat SI joint injection June 11 11:14am follow up after SI June 19, 2025 9 :59am Reason for Visit Admit Date Greater trochanteric bursitis of left hi p May 13, 2025 1:09pm Lumbosacral spondylosis May 13 025 1:09pm Other chronic pain May 13, 2025 1:09pm Sacroiliitis May 13, 2025 1:09pm Adrenal nodule June 04, 2025 9:52am Chronic kidney disease, stage III (moder ate) June 04, 2025 9:52am Hx of partial nephrectomy May 9:52am Hyperlipidemia June 04, 2025 9:52am Hypertensive chronic kidney disease with stage 1 through stage 4 chronic ki June 04, 2025 9:52am Renal cancer June 04, 2025 9:52am Secondary hyperparathyroidism June 04, 2025 9:52am 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 June 04, 2025 9:52am Lumbar radiculopathy June 19, 2025 9:59am Lumbosacral spondylosis June 19 9:59am Other chronic pain June 19, 2025 9 :59am Sacroiliitis June 19, 2025 9 :59am Allergies, Adverse Reactions, Alerts Allergen Type Severity Reaction Last Updated Verified Status Comments NSAIDS (Non-Steroidal Anti-Inflamma Allergy Unknown Kidney Disease June 19, 2025 10:00am Yes Active Onset Date: 11/05/2013 rosuvastatin Allergy Unknown pancreatitis June 19, 2025 10:00am Yes Active Social History Smoking Status Status Start Date End Date Date of Observa tion Never smoked tobacco (finding) June 04, 2025 9:58am Observation Status Observation Response Date of Response Legal Sex Female (finding) Sex Assigned At Female October [id number] Gender Identity Cisgender/Not transgender (findi ng) March 06, 2025 Cisgender/Not transgender (findi ng) March 06, 2025 Cisgender/Not transgender (findi ng) March 06, 2025 Cisgender/Not transgender (findi ng) June 04, 2025 Cisgender/Not transgender (findi ng) March 06, 2025 Cisgender/Not transgender (findi ng) March 06, 2025 Cisgender/Not transgender (findi ng) March 06, 2025 Cisgender/Not transgender (findi ng) June 04, 2025 Cisgender/Not transgender (findi ng) March 06, 2025 Cisgender/Not transgender (findi ng) June 04, 2025 Cisgender/Not transgender (findi ng) March 06, 2025 Family History Relationship Condition Age at Onset Recorded Date/T aracelis brother Diabetes mellitus Unknown Heart disease Unknown daughter Hypothyroidism Unknown father Diabetes mellitus Unknown Unknown Malignant neoplasm Unknown Hypertension Unknown family member Malignant neoplasm of kidney Unknown mother Diabetes mellitus Unknown Heart disease Unknown Unknown son Hypertension Unknown sister Hypertension Unknown Problems Active Problems Medical Problem Onset Date Status Comments RUQ pain Unknown Active Type 2 diabetes mellitus wit h diabetic nephropathy Unknown Active Medicare annual wellness visit, subsequent Unknown Active Lower extremity edema Unknown Active MARU (obstructive sleep apnea) Unknown Active Hx of partial nephrectomy Unknown Active le ft Greater trochanteric bursitis of left hip Unknown Active Lumbar radiculopathy Unknown Active Sacroiliitis Unknown Active Secondary hyperparathyroidism Unknown Active Foreign body Unknown Active Dietary counseling and surveillance Unknown Activ e Type 2 diabetes mellitus Unknown Active Chronic kidney disease, stage III (moderate) Unknown Active CHF (congestive heart failure) Unknown Active Adrenal nodule Unknown Active Hypertensive chronic kidney disease with stage 1 through stage 4 chronic kidney disease, or unspecified chronic kidney disease Unknown Active Hyperlipidemia Unknown Active Cervical spondylosis Unknown Active Lumbosacral spondylosis Unknown Active Chronic abdominal pain Unknown Active Other chronic pain Unknown Active Lumbar degenerative disc disease Unknown Active BMI 34.0-34.9,adult Unknown Active Elevated lipase Unknown Active Stage 3a chronic kidney disease (CKD) Unknown Act vanesa Renal cancer Unknown Active Left hip pain Unknown Active Neck pain Unknown Active Cancer February 11, 2011 Active bilateral kid pawan Hypertension Unknown Active Arthritis of lumbosacral spine Unknown Active Inactive/Resolved Problems Medical Problem Onset Date Status Comments BMI 33.0-33.9,adult Unknown Resolved Medications Medication Status Dose Units Route Directions Qty Days St art Date Stop Date End Date Instructions Adherence Metoprolol Succinate 25 mg tablet extended release 24 hr Discont inued 0 .ROUTE .COMPLEX 90 Novemb er 2023 5:42pm Sep ry 2024 3:49p m TAKE 1 TABLET DAILY Amlodipine 5 mg tablet Discont inued 0 .ROUTE .COMPLEX 90 Novemb er 2023 5:42pm December 25, 2024 9:36a m TAKE 1 TABLET ONCE DAILY Colestipol 1 gram tablet Active 2 GM PO Daily 180 Novemb er 2023 5:52pm Complies with drug therapy Metoprolol Succinate 25 mg tablet extended release 24 hr Discont inued 0 .ROUTE .[facility] 90 Sepua2024 3:49pm January 05, 2025 12:15 pm TAKE 1 TABLET DAILY Amlodipine 5 mg tablet Active 0 .ROUTE .COMPLEX December 25, 2024 9:36am TAKE 1 TABLET ONCE DAILY Complies with drug therapy Metoprolol Succinate 25 mg tablet extended release 24 hr Discont inued 0 .ROUTE .COMPLEX January 05, 2025 12:15p m Octob er 2024 10:21 am TAKE 1 TABLET DAILY Blood-Gluco se Sensor (Freestyle Monet 3 Plus Sensor) device Discont inued 0 .Route March 26, 2025 12:00a m April 07, 2025 1:58p m As directed Blood-Gluco se Sensor (Freestyle Monet 2 Plus Sensor) device Active 0 .Route April 07, 2025 12:00a m Use to monitor BG, Change every 15 days Metoprolol Succinate 25 mg tablet extended release 24 hr Active 0 .ROUTE .COMPLEX 90 Octobe r 2024 10:21a m TAKE 1 TABLET DAILY Complies with drug therapy Sucralfate (Carafate) 1 gram tablet Discont inued 1 GM PO Twice daily as needed for abdominal discomfort 10 5 January 25, 2023 11:42p m November 29, 2023 9:51a m Nystatin 100,000 unit/gram powder Discont inued 1 APPLIC TOPICA L Three times daily as needed for yeast infection December 24, 2024 12:00a m Septe mber 2024 9:57a m Colestipol 1 gram tablet Discont inued 2 GM PO Daily November 29, 2023 12:00a m Novem marizol 2023 5:53p m Metoprolol Succinate 25 mg tablet extended release 24 hr Discont inued 25 MG PO Daily November 29, 2023 12:00a m Novem marizol 2023 5:42p m Amlodipine 5 mg tablet Discont inued 5 MG PO Daily November 29, 2023 12:00a m Novem marizol 2023 5:42p m Insulin Degludec (Tresiba Flextouch U-100) 100 unit/mL (3 mL) insulin pen Active 14 UNIT SUBCUT Daily at bedtime November 29, 2023 12:00a m Complies with drug therapy Insulin Aspart U-100 (Novolog Flexpen U-100 Insulin) 100 unit/mL (3 mL) insulin pen Active 0 SUBCUT .COMPLEX November 29, 2023 12:00a m 1:7 icr ac tid. Corrective scale #1 ac tid. Complies with drug therapy B Complex-Vit ge C-Folic Acid (Renal-Eren ) 0.8 mg tablet Active 1 TAB PO Daily November 29, 2023 12:00a m Complies with drug therapy Glucosamine -Chondroiti n (Osteo Bi-Flex) 250-200 mg tablet Active 1 TAB PO Daily November 29, 2023 12:00a m give after food/meal Complies with drug therapy Multivitami n (Daily Multi-Vitam in) tablet Active 1 TAB PO Daily November 29, 2023 12:00a m Complies with drug therapy Calcium Carbonate-V itamin D3 600 mg-10 mcg (400 unit) capsule Active 1 CAP PO Daily November 29, 2023 12:00a m Complies with drug therapy pen needle, diabetic (BD Ultra-Fine Heike Pen Needle) Active .Route November 29, 2023 12:00a m Tizanidine 4 mg tablet Discont inued 0 PO Twice daily as needed for muscle spasticity 60 30 Novemb 2023 1:00am January 08, 2025 1:20p m 1/2-1 tablet orally twice daily PRN; Nystatin 100,000 unit/gram powder Discont inued 1 APPLIC TOPICA L Three times daily 15 r 2023 12:00a m December 24, 2024 8:06a m Gabapentin 100 mg capsule Discont inued 100 MG PO Daily at bedtime 30 ry 2024 1:00am December 24, 2024 8:05a m Lidocaine 5 % adhesive patch,medic ated Discont inued 2 PATCH TOPICA L Daily 60 30 December 31, 2024 12:00a m January 08, 2025 1:20p m leave on most painful area for up to 12 hrs Immunizations Immunization Event Date Not Given Reason Dose Number 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 Vertical Lot Number Vaccine Information Statement (VIS) Detail Administration Location Pfizer/MyDocirImpact Products ty, Pediatric Age 5-11 August 15, 2022 COVID-19 mRNA, Comirnaty (Pfizer) November 06, 2020 COVID-19 mRNA, Comirnaty (Pfizer) November 25, 2021 COVID-19 mRNA, Comirnaty (Hedvig) May 15, 2021 COVID-19 Comirnaty (Hedvig) Tri-Sucrose 12+ November 25, 2021 COVID-19 mRNA Bivalent Booster (Pfizer) August 15, 2022 Zoster Vaccine Recombinant, Adjuvanted November 09, 2023 Zoster Vaccine Recombinant, Adjuvanted January 10, 2024 Procedures Procedure Date Performed Status MR lumbar spine wo con May 29, 2025 8:13 am completed Relevant Diagnostic Tests and/or Laboratory Data Diagnostic Imaging Reports Author John Morales [facility] Authored May 29, 2025 11:53am Report Dictated Date/Time Dictated By Status Radiology Report May 29, 2025 11:53am John Morales II MD completed [facility] [place] [id number] MRI Report Signed Patient: Caitlyn Palm MR#: [id number] : 1955 Acct:[id number] Age/Sex: 69 / F ADM Date: 5 Loc: [facility] Room: Type: [facility] Attending Dr: Nestor Sandoval MD Copies to: Nestor Sandoval MD~ Ordering Provider: Nestor Sandoval MD Date of Service: 05/29/25 MR/MR lumbar spine wo con: M47.817 - Spondylosis without myelopathy or radiculopathy... MR lumbar spine wo con 05/29/2025 8:50 AM SIGNS AND SYMPTOMS: Low back pain radiating into left leg PROTOCOL: Multiplanar multisequence MR images of the lumbar spine without IV contrast COMPARISON: None. FINDINGS: There is 6 mm of anterolisthesis of L4 upon L5. The bones are otherwise in anatomic alignment. This is unchanged when compared prior exam. There is preservation of vertebral body heights. There is mild disc height loss at T12-L1 and L1-L2 with Schmorl's node formation in the endplates. Schmorl's nodes are also noted at L3-L4. There is moderate disc height loss at L4-L5. The marrow signal is within normal limits. The conus terminates at the superior endplate of the L1 vertebral body level. No epidural or paraspinous fluid collec tion is appreciated. There is a 1.8 cm nodule in the right adrenal gland similar to the prior study. At T12-L1: There is a normal disc, central canal, and neural foramen. At L1-L2: There is a normal disc, central canal, and neural foramen. At L2-L3: There is facet hypertrophy and ligamentum flavum thickening. There is mild spinal canal stenosis with mild bilateral neural foraminal narrowing. At L3-L4: There is a broad-based disc bulge. There is facet hypertrophy with ligamentum flavum thickening. There is mild right and mild to moderate left neural foraminal narrowing with mild spinal canal narrowing similar to the prior exam. At L4-L5: There is 6 mm of anterolisthesis of L4 upon L5. There is a circumferential disc bulge. There is facet hypertrophy with ligamentum flavum thickening. Small bilateral facet effusions are noted. There is moderate to severe spinal canal stenosis similar to the prior exam. There is moderate to severe bilateral neural foraminal narrowing left greater than right. There is mild mass effect on the exiting L4 nerve roots laterally. At L5-S1: There is a normal disc, central canal, and neural foramen. MR/MR lumbar spine wo con IMPRESSION: At L4-L5: There is 6 mm of anterolisthesis of L4 upon L5. There is a circumferential disc bulge. There is facet hypertrophy with ligamentum flavum thickening. Small bilateral facet effusions are noted. There is moderate to severe spinal canal stenosis similar to the prior exam. There is moderate to severe bilateral neural foraminal narrowing left greater than right. There is mild mass effect on the exiting L4 nerve roots laterally. At L3-L4: There is a broad-based disc bulge. There is facet hypertrophy with ligamentum flavum thickening. There is mild right and mild to moderate left neural foraminal narrowing with mild spinal canal narrowing similar to the prior exam. Additional lesser degrees of degenerative changes are redemonstrated as above. There is a 1.8 cm nodule in the right adrenal gland similar to the prior study. Impression dictated by: John Morales M.D. 05/29/2025 11:57 AM Dictation Location: [place] [address] Transcribed By: [facility] 05/29/25 1157 Dictated By: John Morales II, MD 05/29/25 1153 Signed By: <Electronically signed by John Morales II, MD in [place]> 05/29/25 1157 Vital Signs Vital Reading Result Reference Range Collection Date/Time Height 67 [in_i] May 13, 2025 1:11pm Heart Rate 64 /min 60-100 May 13, 2025 1:11pm Oxygen saturation by Pulse oximetry 98 % 95-100 May 13, 2025 1:11pm BP Systolic 150 mm[Hg] 100-140 May 13, 2025 1:11pm BP Diastolic 84 mm[Hg] 60-100 May 13, 2025 1:11pm Height 67 [in_i] June 04, 2025 9:56am Weight 98.88 kg June 04, 2025 9:56am Heart Rate 61 /min 60-100 June 04, 2025 9:56am Respiratory rate 16 /min 12-24 May 122024 9:56am Oxygen saturation by Pulse oximetry 98 % 95-100 June 04, 2025 9:56am BP Systolic 161 mm[Hg] 100-140 June 04, 2025 9:59am BP Diastolic 77 mm[Hg] 60-100 June 04, 2025 9:59am BMI (Body Mass Index) 34.1 kg/m2 2024 9:56am Heart Rate 62 /min 60-100 June 19, 025 10:03am Oxygen saturation by Pulse oximetry 97 % 95-100 June 19, 2025 1 0:03am BP Systolic 142 mm[Hg] 100-140 June 19, 025 10:03am BP Diastolic 84 mm[Hg] 60-100 June 19 025 10:03am Advance Directives Advance Directive Response Recorded Date/ Time Advance Directives No March 06 9:55am Insurance Providers Guarantor Caitlyn Dar Palm Address [address] [place] [id number] Contact Info. Home Phone: Payer Policy Id Subscriber's Name Subscriber Id Effective Date Expiration Date MM [id number] Artur Palm [id number] [facility] For [employer] JESSICA [id number] Artur Palm [id number] Encounters Encounter Location(s) Arrival/Admit Date Discharge/Depart Date Provider(s) Non-patient / Non-visit -[facility] March 26, 2025 10:15am Nestor Sandoval MD Departed Physician/Prov ider Office Visit -[facility] March 26, 2025 10:36am March 26, 2025 11:44am Nestor Sandoval MD Departed Physician/Prov ider Office Visit -[facility] May 13, 2025 1:09pm May 13, 2025 1:33pm Nestor Sandoval MD Departed Clinical -[facility] [address] Closed May 29, 2025 8:11am May 29, 2025 8:12am Nestor Sandoval MD Departed Physician/Prov ider Office Visit -[facility] Neph[facility] [place] June 04, 2025 9:52am June 04, 2025 10:45am Vamshi Tolbert MD Departed Physician/Prov ider Office Visit -[facility] June 11, 2025 11:14am June 11, 2025 11:28am Nestor Sandoval MD Departed Physician/Prov ider Office Visit -[facility] June 19, 2025 9:59am June 19, 2025 10:16am Nestor Sandoval MD Recent Diagnosis Onset Date Admit Date Greater trochanteric bursitis of left hip Unknow n May 13, 2025 1:09pm Lumbosacral spondylosis Unknown 2024 1:09pm Other chronic pain Unknown May 1:09pm Sacroiliitis Unknown May 13, 025 1:09pm Adrenal nodule Unknown June 04, 2025 9:52am Chronic kidney disease, stage III (moderate) Unk nown June 04, 2025 9:52am Hx of partial nephrectomy Unknown 2024 9:52am Hyperlipidemia Unknown June 04, 2025 9:52am Hypertensive chronic kidney disease with stage 1 through stage 4 chronic ki Unknown June 04, 2025 9:52 am Renal cancer Unknown June 04, 2025 9:52am Secondary hyperparathyroidism Unknown Se pt2024 9:52am Type 2 diabetes mellitus wit h diabetic nephropathy Unknown June 04, 2025 9:52am Lumbar radiculopathy Unknown June 9:59am Lumbosacral spondylosis Unknown June 19, 2025 9:59am Other chronic pain Unknown June 19, 2025 9:59am Sacroiliitis Unknown June 19 9:59am Assessments Diagnosis Onset Date Resolution Status Admit Date Greater trochanteric bursiti s of left hip acute May 13, 2 025 1:09pm Lumbosacral spondylosis acute S [id number] 1:09pm Other chronic pain acute 2024 1:09pm Sacroiliitis acute May 1:09pm Adrenal nodule acute June 04, 2025 9:52am Chronic kidney disease, stag e III (moderate) acute June 04, 2025 9:52am Hx of partial nephrectomy acute June 04, 2025 9:52am Hyperlipidemia acute June 04, 2025 9:52am Hypertensive chronic kidney disease with stage 1 through stage 4 chronic ki acute May 9:52am Renal cancer acute June 042024 9:52am Secondary hyperparathyroidism acute June 04, 2025 9:52am Type 2 diabetes mellitus wit h diabetic nephropathy acute May 122024 9:52am Lumbar radiculopathy acute Octo marizol 2024 9:59am Lumbosacral spondylosis acute O ctober 2024 9:59am Other chronic pain acute Oct r 2024 9:59am Sacroiliitis acute June 9:59am Plan of Treatment Author [facility] Authored May 13, 2025 1:24pm 69 y/o female here for follo w up status post lumbar facet medial branch radiofrequency ablation bilaterally at L3, L4 as well as L5 dorsal ramus for denervation of L4-5, L5-S1 facet joints under fluoroscopic guidance. Patient reports 50-60% overall pain relief as well as increased function in standing, walking and daily activities following the procedure. She continues to complain of residual low back pain, worse at night. Clinically, her symptoms are consistent with sacroiliitis. Anatomy of spine discussed in detail with patient in regards to patients condition. Patient is a candidate for a bilateral sacroiliac joint injection under fluoroscopic guidance. Risks and benefits of procedure explained to patient; patient verbalizes understanding. Stable. Patient reports 70-80% overall pain relief following procedure. I will order an updated MRI of the lumbar spine for residual low back pain Continue with current treatment plan If her pain persists, we can consider other interventional treatment options in the future Author F[facility] Authored June 19, 2025 1 0:16am 69 year old female here for follow up status post bilateral sacroiliac joint injection under fluoroscopic guidance. Patient reports 80% pain relief as well as improved walking, standing and daily functions following the procedure. She complains of mild residual low back pain. Anatomy of spine discussed in detail with patient in regards to patients condition. Overall, she appears to be doing very well and does not require further interventional treatment at this time. I recommend she increase her activities as tolerated. She is counseled against any excessive bending or twisting. She is encouraged to call the office if her symptoms return Stable. Patient denies lumbar pain Pertinent imaging of the lumbar spine was reviewed and discussed in detail with the patient which showed a circumferential disc bulge with moderate to severe spinal canal stenosis as well as facet arthropathy. Patient currently denies any radicular symptoms. Stable. Patient is encouraged to call the office if her symptoms return Author Vamshi Tolbert [facility] Authored June 05, 2025 5:57pm It was a pleasure to see Mrs Cindy Palm in our office for an evaluation and management of the CKD. As you know she has a CKD likely due to the DM, HTN and reduced kidney volume. Her most recent serum creatinine is 1.2 mg/dL. I have ordered a UA and UPCR to evaluate for hematuria and proteinuria. I have ordered a CAT scan abdomen pelvis with contrast to evaluate the renal anatomy. I discussed with the importance good DM and HTN control to slow down the progression of CKD. I explained to her adequately hydrate herself. Her blood sugars are controlled. Will continue insulin. She is not on LUCIA or SGLT2 inhibitors. Will evaluate for proteinuria and start LUCIA and ARB. Her blood pressure is high but she appears to be euvolemic. Advised her to monitor blood pressure at home and call our office if it stays above 130 over 80 mmHg. Will continue current dose of the amlodipine and metoprolol. Will prescribe LUCIA or ARB if blood pressure is high at home. Advised her to continue follow with PCP for monitoring of LFTs. Her serum calcium is within normal limit. Will check PTH and vitamin D. Will continue calcium and vitamin D for now. She has a left partial nephrectomy and right total nephrectomy due to the bilateral renal cancer. She has adrenal nodule. I have advised to continue follow-up with endocrine at [facility]. She has a bilateral renal cancer and and had total right nephrectomy and left partial nephrectomy. Will do a CAT scan with contrast for surveillance of the cancer. Will give IV fluids before the cancer can for LAKIA prophylaxis. Future Tests Future scheduled test information is unavailable Pending Tests Test Name Ordered Date Scheduled Date CT abdomen pelvis w con June 04, 2025 10: 17am Immunofixation, (KARISSA), Urine June 04 10:21am 4 Weeks Renal Function Panel June 04, 2025 10:19a m 4 Weeks Future Visits Future appointment information is unavailable Referrals to Other Providers Referral information is unavailable Future Procedures Procedure Name Ordered Date Scheduled Date Dipstick and Microscopic June 04, 2025 10 :19am 4 Weeks Hemogram CBC Without Diff June 04, 2025 1 0:19am 4 Weeks Immunofixation,Serum June 04, 2025 10:21a m 4 Weeks Free K+L LT Chains, Qn, S June 04, 2025 1 0:21am 4 Weeks Magnesium June 04, 2025 10:19am 4 W eeks Protein Creat Ratio Ur Random June 04 10:19am 4 Weeks Parathyroid Hormone Intact June 04, 2025 10:19am 4 Weeks Prot Electrophoresis w/Interp June 04 10:21am 4 Weeks Protein Electrophoresis, Serum June 04, 2 025 10:21am 4 Weeks Uric Acid June 04, 2025 10:19am 4 W eeks Vitamin D 25 Hydroxy Total June 04, 2025 10:19am 4 Weeks Future Medications Future medication information is unavailable Patient Instructions Patient instructions are unavailable
--- OUTSIDE RECORDS SUMMARY | 2025-06-24 09:18 | XMS_ITS | Encounter Summary ---
Author Organization [facility] Address [address] [place] [address] Care Team Providers Care Electrical Installation Supervisor Name Role Phone Kady Cotter MD Primary Care Provider [phone] Source Comments In the event this information is protected by the Federal Confidentiality of Alcohol and Drug AbusePatient Records regulations: The Federal rules restrict any use of the information to criminally investigate or prosecute any alcohol or drug abuse patient.[facility] Encounter Details Date Type Department Care Team (Late st Contact Info) Description 02/15/2023 Get Medical Advice Urology [address] [address] Thony Renee MD [address] [place] [address] future surgery Social History Tobacco [...] N ot on file 10/23/2022 Data from: https://www.neighborhoodatlas.[facility]/. Last address used for calculation [address] [address] 10/23/2022 Comments No Sex and [...] on filedocumented in this encounter Care Teams Electrical Installation Supervisor Relationship Specialty Start Date End Date Kady Cotter MD [address] [place] [phone] PCP - General Family Medicine 10/19/11 documented as of this encounter
--- OUTSIDE RECORDS SUMMARY | 2025-06-24 09:18 | XMS_ITS | Encounter Summary ---
Author Organization [facility] Address [address] [place] [address] Care Team Providers Care Sql Ssis Developer Name Role Phone Kady Cotter MD Primary Care Provider [phone] Source Comments In the event this information is protected by the Federal Confidentiality of Alcohol and Drug AbusePatient Records regulations: The Federal rules restrict any use of the information to criminally investigate or prosecute any alcohol or drug abuse patient.[facility] Encounter Details Date Type Department Care Team (Late st Contact Info) Description 09/22/2021 Patient Msg Urology [address] [place] [phone] Provider, Ccf Orders Social History Tobacco Use [...] N ot on file 08/18/2020 Data from: https://www.neighborhoodatlas.medicine.[facility].edu/. Last address used for calculation Not [...] of Assessment Author No 03/08/2015 3:41 PM iRtika Angel MA * Because of a physical, [...] on filedocumented in this encounter Care Teams Sql Ssis Developer Relationship Specialty Start Date End Date Kady Cotter MD [address] [place] [address] PCP - General Family Medicine 10/19/11 documented as of this encounter
--- OUTSIDE RECORDS SUMMARY | 2025-06-24 09:18 | XMS_ITS | Encounter Summary ---
Author Organization [facility] Address [address] [place] [address] Care Team Providers Care Web Development Director Name Role Phone Kady Cotter MD Primary Care Provider [phone] Source Comments In the event this information is protected by the Federal Confidentiality of Alcohol and Drug AbusePatient Records regulations: The Federal rules restrict any use of the information to criminally investigate or prosecute any alcohol or drug abuse patient.[facility] Encounter Details Date Type Department Care Team (Late st Contact Info) Description 03/28/2023 GI Preprocedure Call Ambulatory Surgery [address] [place] [phone] [place] [address] [address] [place] [phone] Social History Tobacco Use Types Packs/Day Years Used Date Smoking Tobacco: Never Smokeless Tobacco: Never Alcohol Use Standard Drinks/Week Comments Yes 0 (1 standard drink = 0.6 oz pur e alcohol) occasional Area Deprivation Index Answer Date Douglas rded National Score (1-100), lower number is lower ri 65 03/20/2023 State Score (1-10), lower number is lower risk 5 03/20/2023 Data from: https://www.neighborhoodatlas.[facility]/. Last address used for calculation [address] [address] 03/20/2023 Comments No Sex [...] on filedocumented in this encounter Care Teams Web Development Director Relationship Specialty Start Date End Date Kady Cotter MD [address] [place] [phone] PCP - General Family Medicine 10/19/11 documented as of this encounter
--- OUTSIDE RECORDS SUMMARY | 2025-06-24 09:18 | XMS_ITS | Encounter Summary ---
Author Organization [facility] Address [address] [place] [address] Care Team Providers Care Brass Bobbin Winder Name Role Phone Kady Cotter MD Primary Care Provider [phone] Source Comments In the event this information is protected by the Federal Confidentiality of Alcohol and Drug AbusePatient Records regulations: The Federal rules restrict any use of the information to criminally investigate or prosecute any alcohol or drug abuse patient.[facility] Encounter Details Date Type Department Care Team (Late st Contact Info) Description 03/06/2025 Patient Msg Urology [address] [place] [phone] Provider, Ccf Correction Letter Social History Tobacco Use Types Packs/Day [...] is lower risk 5 03/20/2023 Data from: https://www.[facility]/. Last address used for calculation [address] [facility] [address] 175 03/20/2023 Comments No Sex and Gender [...] on filedocumented in this encounter Care Teams Brass Bobbin Winder Relationship Specialty Start Date End Date Kady Cotter MD [address] [place] [phone] PCP - General Family Medicine 10/19/11 documented as of this encounter
--- OUTSIDE RECORDS SUMMARY | 2025-06-24 09:18 | XMS_ITS | Encounter Summary ---
Author Organization [facility] Address [address] [place] [address] Care Team Providers Care Campaign Manager Name Role Phone Kady Cotter MD Primary Care Provider [phone] Source Comments In the event this information is protected by the Federal Confidentiality of Alcohol and Drug AbusePatient Records regulations: The Federal rules restrict any use of the information to criminally investigate or prosecute any alcohol or drug abuse patient.[facility] Encounter Details Date Type Department Care Team (Late st Contact Info) Description 12/01/2014 Patient Msg Medical Records [address] [place] [address] Provider, Ccf Labs Social History Tobacco Use [...] on filedocumented in this encounter Care Teams Campaign Manager Relationship Specialty [place] [address] [place] [phone] PCP - General Family Medicine 10/19/11 documented as of this encounter
--- OUTSIDE RECORDS SUMMARY | 2025-06-24 09:18 | XMS_ITS | Encounter Summary ---
Author Organization [facility] Address [address] [place] [address] Care Team Providers Care Conveyor Belt Operator Name Role Phone Kady Cotter MD Primary Care Provider [phone] Source Comments In the event this information is protected by the Federal Confidentiality of Alcohol and Drug AbusePatient Records regulations: The Federal rules restrict any use of the information to criminally investigate or prosecute any alcohol or drug abuse patient.[facility] Encounter Details Date Type Department Care Team (Late st Contact Info) Description 03/22/2023 Patient [facility] [address] [phone] Provider, Ccf Colonoscopy instructions Social History Tobacco [...] is lower risk 5 03/20/2023 Data from: https://www.neighborhoodatlas.medicine.[facility].edu/. Last address used for calculation [address] [place] [address] 03/20/2023 Comments No Sex and Gender Information [...] on filedocumented in this encounter Care Teams Conveyor Belt Operator Relationship Specialty Start Date End Date Kady Cotter MD [address] [place] [address] PCP - General Family Medicine 10/19/11 documented as of this encounter
--- OUTSIDE RECORDS SUMMARY | 2025-06-24 09:18 | XMS_ITS | Clinical Summary ---
Author Organization [facility] Address [address] [place] [address] Care Team Providers Care Process Tank Tender Name Role Phone Kady Cotter MD Primary Care Provider [phone] Allergies Active Allergy Reactions Criticality Noted Date [...] for 90 days. 90 capsule 01/15/20 25 Active Active Problems Problem Noted Date Diagnosed Date MARU (obstructive sleep apnea) 05/23/2023 Unspecified essential hypertension 11/29/2011 Adrenal mass 11/29/2011 CKD (chronic kidney disease) 11/29/2011 Cancer of kidney 11/06/2011 Family History Medical History Relation Comments Colon [...] 5 03/20/2023 Data from: https://www.neighborhoodatlas.medicine.[facility]/. Last address used for calculation [address] [place] [address] 03/20/2023 Comments No Sex and Gender [...] Colonoscopy 03/29/2024 03/29/2023 Colorectal Cancer Screening 03/29/2024 Serum Creatinine 06/19/2024 06/19/2023, , 04/10/2016, Additional history exists Advance Directive Discussion 09/10/2024 Mammogram Screening 10/12/2024 10/12/2023, 10/12/2023, 10/27/2021, Additional history exists Covid-19 Vaccine (5 - 2024-2 6 season) 2025 08/15/2022, 11/25/2021, 05/15/2021, Additional history exists Influenza Vaccine (#1) 2025 [...] 6.3 - 8.0 g/dL 06/19/2023 11:09 AM [facility] Albumin 4.5 3.9 - 4.9 g/dL 06/19/2023 11:09 AM [facility] Calcium, Total 9.9 8.5 - 10.2 mg/dL 06/19/2023 11:09 AM [facility] Bilirubin, Total 0.6 0.2 - 1.3 mg/dL 06/19/2023 11:09 AM [facility] Alkaline Phosphatase 95 34 - 123 U/L 06/19/2023 11:09 AM [facility] AST 21 13 - 35 U/L 06/19/2023 11:09 AM [facility] ALT 23 7 - 38 U/L 06/19/2023 11:09 AM [facility] Glucose 142(H) 74 - 99 mg/dL 06/19/2023 11:09 AM [facility] Comment: The [place] [employer] (ADA) provides guidance for cutoff [...] Standards of Medical Care in Diabetes 2016, [place] [employer]. Diabetes Care. 2016.39(Suppl 1). BUN 20 7 - 21 mg/dL 06/19/2023 11:09 AM [facility] Creatinine 1.05(H) 0.58 - 0.96 mg/dL 06/19/2023 11:09 AM [facility] Sodium 139 136 - 144 mmol/L 06/19/2023 11:09 AM [facility] Potassium 4.5 3.7 - 5.1 mmol/L 06/19/2023 11:09 AM [facility] Chloride 102 97 - 105 mmol/L 06/19/2023 11:09 AM [facility] CO2 27 22 - 30 mmol/L 06/19/2023 11:09 AM [facility] Anion Gap 10 9 - 18 mmol/L 06/19/2023 11:09 AM [facility] Estimated Glomerular Filtration Rate 59(L) >=60 mL/min/1. 73m 06/19/2023 11:09 AM [facility] Comment:Estimated Glomerular Filtration Rate (eGFR) is [...] us Manjinder Lo MD LABORATORY Final Result [facility] [address] [place] [address], * COLONOSCOPY SCREENING (03/29/2023 9:12 AM EDT) Anatomical Region Laterality Modality Other 03/29/2023 9:12 AM EDT Narrative 03/29/2023 9:[address] [facility] Gastroenterology Gastrointestinal Endoscopy Patient Name: Caitlyn Palm Procedure Date: 03/29/2023 9:12 AM Date of : 1955 Admit Type: Outpatient Age: 67 Room: [place] [address] Gender: Female Note Status: Finalized Attending MD: [...] specimen was done by the nurse and cooking appliance repair technician using the patient's name, date and [...] for surveillance. Procedure Code(s): --- Professional --- 09989, Colonoscopy, flexible; with removal of tumor(s), polyp(s), or other lesion(s) by snare technique Diagnosis Code(s): --- Professional --- Z12.11, Encounter for screening for malignant neoplasm of colon D12.0, Benign neoplasm of cecum D12.3, Benign neoplasm of transverse colon (hepatic flexure or splenic flexure) K64.4, Residual hemorrhoidal skin tags K57.30, Diverticulosis of large intestine without perforation or abscess without bleeding CPT copyright 2020 [place] [employer]. All rights reserved. The codes documented in this report are preliminary and upon bartender server review may be revised to meet current [...] EST) Triglyceride 160(H) 30 - 149 mg/dL [facility] Cholesterol, Total 170 100 - 199 mg/dL [facility] HDL Cholesterol 40(L) >55 mg/dL [facility] VLDL Cholesterol 32 6 - 40 mg/dL [facility] LDL Cholesterol, Calculated 98 60 - 129 mg/dL [facility] Fasting Time 12 hrs [facility] TC:HDL Ratio 4.25 1.00 - 5.00 [facility] LDL:HDL Ratio 2.45 0.50 - 3.55 [facility] Non HDL Cholesterol 130 90 - 159 mg/dL [facility] 07/14/2013 8:25 AM EST 07/14/2013 9:25 AM EST Ccf Provider LABORATORY Final Result [facility] [address] [facility] [place] [address] * CBC + PLT (06/24/2012 8:25 AM EDT) WBC 5.74 3.70 - 11.00 k/uL [facility] RBC 4.59 3.90 - 5.20 m/uL [facility] Hemoglobin 12.5 11.5 - 15.5 g/dL [facility] Hematocrit 37.9 36.0 - 46.0 % [facility] MCV 82.6 80.0 - 100.0 fL [facility] MCH 27.2 26.0 - 34.0 pG [facility] MCHC 33.0 30.5 - 36.0 g/dL [facility] RDW-CV 13.1 11.5 - 15.0 % [facility] Platelet Count 243 150 - 400 k/uL [facility] MPV 9.3 9.0 - 12.7 fL [facility] Blood specimen (specimen) BLOOD SPECIMEN / Unknown 06/24/2012 8:25 AM EDT 06/24/2012 8:27 AM EDT us Thony Renee MD LABORATORY Final Resul t [facility] [address] [place] [address] from Last 3 Months or Most Recently Relevant to Health Maintenance Insurance MEDICARE Advance Directives Documents on File Type Date Recorded Patient Passenger Rate Clerk Expl anation Advance Directive(s) 12/13/2011 9:15 PM Care Teams Process Tank Tender Relationship Specialty Start Date End Date Kady Cotter MD [address] [place] [address] PCP - General Family Medicine 10/19/11
--- OUTSIDE RECORDS SUMMARY | 2025-06-24 09:18 | XMS_ITS | Encounter Summary ---
Author Organization [facility] Address [address] [place] [address] Care Team Providers Care Laundry Clerk Name Role Phone Kady Cotter MD Primary Care Provider [phone] Source Comments In the event this information is protected by the Federal Confidentiality of Alcohol and Drug AbusePatient Records regulations: The Federal rules restrict any use of the information to criminally investigate or prosecute any alcohol or drug abuse patient.[facility] Encounter Details Date Type Department Care Team (Late st Contact Info) Description 2021 [place] [address] Provider, Ccf Medicare Coverage of Physical Exams [...] N ot on file 08/18/2020 Data from: https://www.neighborhoodatlas.medicine.[facility].edu/. Last address used for calculation Not [...] Assessment Author No 03/08/2015 3:41 PM Ritika Agnel MA * Are you blind or do [...] on filedocumented in this encounter Care Teams Laundry Clerk Relationship Specialty Start Date End Date Kady Cotter MD [address] [place] [address] PCP - General Family Medicine 10/19/11 documented as of this encounter
--- OUTSIDE RECORDS SUMMARY | 2025-06-24 09:18 | XMS_ITS | Encounter Summary ---
Author Organization [facility] Address [address] [place] [address] Care Team Providers Care Director Of Sales Marketing Name Role Phone Kady Cotter MD Primary Care Provider [phone] Source Comments In the event this information is protected by the Federal Confidentiality of Alcohol and Drug AbusePatient Records regulations: The Federal rules restrict any use of the information to criminally investigate or prosecute any alcohol or drug abuse patient.[facility] Encounter Details Date Type Department Care Team (Late st Contact Info) Description 09/29/2023 Get Medical Advice Urology [address] [address] Thony Renee MD [address] [place] [address] Request to consult Social History [...] is lower risk 5 03/20/2023 Data from: https://www.neighborhoodatlas.[facility]/. Last address used for calculation [address] [address] 03/20/2023 Comments No Sex and [...] on filedocumented in this encounter Care Teams Director Of Sales Marketing Relationship Specialty Start Date End Date Kady Cotter MD [address] [place] [phone] PCP - General Family Medicine 10/19/11 documented as of this encounter
--- OUTSIDE RECORDS SUMMARY | 2025-06-24 09:18 | XMS_ITS | Encounter Summary ---
Author Organization [facility] Address [address] [place] [address] Care Team Providers Care Digital Sales Representative Name Role Phone Kady Cotter MD Primary Care Provider [phone] Source Comments In the event this information is protected by the Federal Confidentiality of Alcohol and Drug AbusePatient Records regulations: The Federal rules restrict any use of the information to criminally investigate or prosecute any alcohol or drug abuse patient.[facility] Encounter Details Date Type Department Care Team (Late st Contact Info) Description 02/05/2020 [place] [address] Provider, Ccf Estimate Social History Tobacco Use [...] on filedocumented in this encounter Care Teams Digital Sales Representative Relationship Specialty Start Date End Date Kady Cotter MD [address] [place] [phone] PCP - General Family Medicine 10/19/11 documented as of this encounter
--- OUTSIDE RECORDS SUMMARY | 2025-06-24 09:18 | XMS_ITS | Encounter Summary ---
Author Organization [facility] Address [address] [place] [address] Care Team Providers Care Director Of Materials Name Role Phone Kady Cotter MD Primary Care Provider [phone] Source Comments In the event this information is protected by the Federal Confidentiality of Alcohol and Drug AbusePatient Records regulations: The Federal rules restrict any use of the information to criminally investigate or prosecute any alcohol or drug abuse patient.[facility] Encounter Details Date Type Department Care Team (Late st Contact Info) Description 05/22/2023 Patient Msg Pre Anesthesia [address] [place] [address] Provider, Ccf PACC appt check in Social [...] is lower risk 5 03/20/2023 Data from: https://www.neighborhoodatlas.medicine.[facility].edu/. Last address used for calculation [address] [facility] 175 03/20/2023 Comments No Sex and Gender [...] in this encounter Care Teams Director Of Materials Relationship Specialty Start Date End Date Kady Cotter MD [address] [place] [address] PCP - General Family Medicine 10/19/11 documented as of this encounter
--- OUTSIDE RECORDS SUMMARY | 2025-06-24 09:18 | XMS_ITS | Encounter Summary ---
Author Organization [facility] Address [address] [place] [address] Care Team Providers Care Heel Cutter Name Role Phone Kady Cotter MD Primary Care Provider Source Comments In the event this information is protected by the Federal Confidentiality of Alcohol and Drug AbusePatient Records regulations: The Federal rules restrict any use of the information to criminally investigate or prosecute any alcohol or drug abuse patient.[facility] Encounter Details Date Type Department Care Team (Late st Contact Info) Description 01/16/2017 Patient Msg Medical Records [address] [place], [place] [id number] Sabine Cummings, ANA ROSA Questionnaire Submission Social [...] on filedocumented in this encounter Care Teams Heel Cutter Relationship Specialty Start Date End Date Kady Cotter MD [address] [place] [phone] PCP - General Family Medicine 10/19/11 documented as of this encounter
--- OUTSIDE RECORDS SUMMARY | 2025-06-24 09:18 | XMS_ITS | Clinical Summary ---
Author Organization [facility] Healthcare Address [address] [place] [address] Care Team Providers Care Typewriter Repairer Name Role Phone Stephanie Cotton MOLD PARTER Unavailable [phone] Arnaldo Anaya DO Unavailable [phone] Kady Cotter MD Primary Care Provider [phone] Allergies Active Allergy Reactions Criticality Noted Date Comments Rosuvastatin 11/07/2024 Nsaids 11/07/2024 Medications amLODIPine (Norvasc) 5 MG tablet Take 5 mg by mouth Daily Active colestipol (Colestid) 1 g tablet Take 2 g by mouth Daily Active metoprolol succinate XL (Toprol-XL) 25 MG 24 hr tablet Take 25 mg by mouth Daily Active Calcium Carb-Cholecalci ferol 600-25 MG-MCG capsule Take by mouth A ctive multivitamin with minerals (Centrum) 9-200 mg-mcg tablet split tablet Take 1 tablet by mouth in the morning. 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 11/07/2024 11/07/2024 Spondylosis 11/07/2024 11/07/2024 Type 2 diabetes mellitus wit hout complications 11/07/2024 11/07/2024 MARU (obstructive sleep apnea) 05/23/2023 11/07/2024 Adrenal mass 11/29/2011 11/07/2024 CKD (chronic kidney disease) 11/29/2011 11/07/2024 Essential hypertension 11/29/201111/07 Cancer of kidney 11/06/2011 11/07/2024 Immunizations Immunization Administration Dates Next Due Zoster, Recombinant 01/10/2024,11/09/2023 Social History Tobacco Use Types Packs/Day Years Used Date Smoking Tobacco: Never Smokeless Tobacco: Never Alcohol Use Standard Drinks/Week Comments Not Currently 0 (1 standard drink = 0.6 oz pur e alcohol) Comments Unknown Sex and Gender Information Value Date Recorded Sex Assigned at Not on file Legal Sex Female 7:02 PM EDT Gender Identity Not on file Sexual Orientation Not on file Last Filed Vital Signs Vital Sign Reading Time Taken Comments Blood Pressure 122/79 10/02/2019 12:00 PM EST Pulse - - Temperature - - Respiratory Rate - - Oxygen Saturation - - Inhaled Oxygen Concentration - - Weight 95.3 kg (210 lb) 11/07/2024 2:47 PM EST Height 170.2 cm (5' 7 ) 11/07/2024 2:47 PM EST Body Mass Index 32.89 11/07/2024 2:47 PM EST Plan of Treatment Health Maintenance Due Date Last Done Comments CT Colonography 1956 FIT-DNA 1956 FIT 1956 FOBT 1955 Sigmoidoscopy 1955 Pneumococcal Vaccine: 65+ Ye ars (1 of 1 - PCV) 2006 Mammogram 10/12/2024 10/12/2023, 10/11, 01/08/2019, Additional history exists Influenza Vaccine (#1) 2025 Colonoscopy 03/29/2033 03/29/2023, 03/29/2023 Colorectal Cancer Screening 03/29/2033 Insurance MEDICARE [place] [id number] Care Teams Typewriter Repairer Relationship Specialty Start Date End Date Kady Cotter MD [address] [place] [address] PCP - General Family Medicine 11/07/24 Stephanie Cotton NP [address] [facility] [place] [address] Referring Physician Family Medicine 11/07/24 Arnaldo Anaya DO [address] [place] [address] Otolaryngology 11/07/24
--- OUTSIDE RECORDS SUMMARY | 2025-06-24 09:18 | XMS_ITS | Encounter Summary ---
Author Organization [facility] Address [address] [place] [address] Care Team Providers Care Frame Tender Name Role Phone Kady Cotter MD Primary Care Provider [phone] Source Comments In the event this information is protected by the Federal Confidentiality of Alcohol and Drug AbusePatient Records regulations: The Federal rules restrict any use of the information to criminally investigate or prosecute any alcohol or drug abuse patient.[facility] Encounter Details Date Type Department Care Team (Latest Contact Info) Description 12/16/2024 Get Medical Advice Urology [address] [phone] [place] [address] [place] [phone] Recommendation for spinal surgeon Social History [...] is lower risk 5 03/20/2023 Data from: https://www.neighborhoodatlas.[facility] Last address used for calculation [address] 03/20/2023 Comments No Sex [...] on filedocumented in this encounter Care Teams Frame Tender Relationship Specialty Start Date End Date Kady Cotter MD [address] [place] [phone] PCP - General Family Medicine 10/19/11 documented as of this encounter
--- OUTSIDE RECORDS SUMMARY | 2025-06-24 09:18 | XMS_ITS | Encounter Summary ---
Author Organization [facility] Address [address] [place] [address] Care Team Providers Care Woodworker Name Role Phone Kady Cotter MD Primary Care Provider [phone] Source Comments In the event this information is protected by the Federal Confidentiality of Alcohol and Drug AbusePatient Records regulations: The Federal rules restrict any use of the information to criminally investigate or prosecute any alcohol or drug abuse patient.[facility] Encounter Details Date Type Department Care Team (Late st Contact Info) Description 02/06/2020 Patient Msg [facility] [address] [place] [id number] Provider, Ccf Estimate Social History Tobacco Use [...] on filedocumented in this encounter Care Teams Woodworker Relationship Specialty Start Date End Date Kady Cotter MD [address] [place] [phone] PCP - General Family Medicine 10/19/11 documented as of this encounter
--- OUTSIDE RECORDS SUMMARY | 2025-06-24 09:18 | XMS_ITS | Clinical Summary ---
Author Organization [facility] Address [address] [facility] [address], [address] [place] [address] Care Team Providers Care Babbitter Name Role Phone Kady Cotter MD Primary Care Provider [phone] Allergies No known active allergies Medications colestipol [...] skin weekly 5 09/09/2018 Active nystatin (MYCOSTATIN) 008475 UNIT/GM powderIndicatio ns:Intertrigo Apply 3 times daily [...] Essential hypertension 11/29/2011 Cancer of kidney 11/06/2011 Family History Medical History Relation Name Comments [...] place to sleep or slept in a alf (including now)? 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 The [employer] recommends annual mammograms for women 40 years and older. Performing Facility: [place] [id number] Narrative 01/16/2025 4:40 PM EDT EXAMINATION: SCREENING [...] interval changes are noted. Mario Lutz MD IM MAMMOGRAPHY ORDERABLES Fi nal Result * STRESS TEST TECHNICIAN Cytology (10/27/2021 10:51 AM EST) Cytology Report INTERPRETATION Cervical material, (ThinPrep vial, Imaging-assisted review): Specimen Adequacy: Satisfactory for evaluation. Descriptive Diagnosis: Negative for intraepithelial lesion or malignancy. 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 [place], [place] [address] [employer] CERVICAL MATERIAL 10/27/2021 10:51 AM EST 10/28/2021 10:51 AM EST us Mario Lutz MD PATHOLOGY/CYTOLOGY ORDERABLES Final Result [facility] [address] [place] [address], [facility] [phone] [facility] [address] [place] [address], [facility] [phone] from Last 3 Months or Most Recently Relevant to Health Maintenance Insurance MEDICARE [employer] [facility] [address] [place] [address] Care Teams Babbitter Relationship Specialty Start Date End Date Kady Cotter MD [address] [place] [address] PCP - General 08/13/12
[2025-06-24 10:22] LABS: Hematocrit 40.4 % (36.0-48.0); Hemoglobin 13.5 g/dL (12.0-16.0); Mean Corpuscular HGB Conc 33.4 g/dL (29.9-35.2); Mean Corpuscular Hemoglobin 28.8 pg (26.7-34.0); Mean Corpuscular Volume 86.1 fL (81.0-99.0); Platelet Count 237 10^3/uL (150-450); Red Blood Count 4.69 10^6/uL (4.20-5.40); White Blood Count 7.0 10^3/uL (4.0-11.0)
[2025-06-24 10:24] LABS: Protein Creatinine Ratio Urine 0.30; Total Protein Urine Random 9.3 mg/dL (<=11.9)
[2025-06-24 10:40] LABS: Glucose Urine UA NEGATIVE (NEGATIVE)
[2025-06-24 11:09] LABS: Cast Seen? NONE SEEN #/LPF (NONE SEEN); Crystals Seen? None Seen #/HPF (None Seen)
[2025-06-24 11:18] LABS: Albumin Level 3.6 g/dL (3.4-5.0); Anion Gap 12.5; Blood Urea Nitrogen 23.0 mg/dL (7.0-18.0); Calcium 9.5 mg/dL (8.5-10.1); Carbon Dioxide 28.0 mmol/L (21.0-32.0); Chloride 97 mmol/L (98-107); Estimated GFR (African America >60 (>=60 mL/min/1.73m^2); Estimated GFR (Non-African Ame 56 (>=60 mL/min/1.73m^2); Glucose 138 mg/dL (74-106); Magnesium 1.8 mg/dL (1.8-2.4); Potassium 4.5 mmol/L (3.5-5.1); Sodium 133 mmol/L (136-145); Uric Acid 4.6 mg/dL (2.6-6.0)
[2025-06-26 14:08] LABS: Albumin 3.6 g/dL (2.9-4.4); Alpha-1-Globulin 0.2 g/dL (0.0-0.4); Alpha-2-Globulin 0.8 g/dL (0.4-1.0); Free Kappa Lt Chains,S 19.1 mg/L (3.3-19.4); Free Lambda Lt Chains,S 18.7 mg/L (5.7-26.3); Gamma Globulin 0.8 g/dL (0.4-1.8); Immunoglobulin A, Qn, Serum 244 mg/dL (87-352); Kappa/Lambda Ratio,S 1.02 (0.26-1.65)
== END 2025-06-24 09:08 | disposition home or self-care (01) ==
LOC: LAB 09:16
PROVIDERS: PCP Family Medicine; Visit Provider Internal Medicine
DX: N25.81 Secondary hyperparathyroidism of renal origin (principal); C80.1 Malignant (primary) neoplasm, unspecified; I12.9 Hypertensive chronic kidney disease with stage 1 through stage 4 chronic kidney disease, or unspecified chronic kidney disease; N18.30 Chronic kidney disease, stage 3 unspecified; Z90.5 Acquired absence of kidney; E78.5 Hyperlipidemia, unspecified
CPT/HCPCS: 36415; 80069; 81001; 82306; 82570; 82784; 83521; 83735; 83970; 84155; 84156; 84165; 84166; 84550; 85027; 86334; 86335